=== PATIENT | male | born 1945 | race Caucasian/White ===

== ENCOUNTER 2024-12-30 22:11 | Inpatient (IN) | payer OTHER, SELFPAY ==
[2024-12-30] VITALS (7 sets, daily range): BP systolic 152–166; BP diastolic 80–97; BMI 31.4
--- NOTE | 2024-12-30 19:27 | EDRN ---
Addendum entered by Bri Bland RN 12/30/24 20:13:
Pt states he has had a decreased appetite over past 2.5 weeks and not eating as much w/ weight loss and gets increased pain with and after eating. Pt adds that his stools have been sl abnormal appearing 'pasty.'
Original Note:
Pt states she arrives for 'waves' of abd pain that started 2.5 weeks ago w/ back pain. Pt then got very tired, Next day felt better. Came back and then next day alright. Pt ate food yesterday and pain came back. Pt got bloated after eating. Pt has
not been eating much. pt states pain was getting worse and worse. Pt had a yogurt and soup. Pain noted in Epigstric area now was in bilateral lower abd and not in back now. Pain hurts in abd when takes a deep breath. Spouse states pt looks very
bloated. On exam pain on palpation in epigastric area and LUQ.
--- NOTE | 2024-12-30 19:46 | ED.GENMED ---
History of Present Illness
General
Chief Complaint: Abdominal Pain
Source: patient
Exam Limitations: none
Time Seen by Provider: 12/30/24 19:14
Nursing documentation reviewed up to this point in time: agreed with
History of Present Illness
History of Present Illness:
Patient is a 79-year-old male with history hypertension, hyperlipidemia who presents to the emergency department for evaluation of upper abdominal pain X 2.5 weeks. Patient states symptoms started approximately 2.5 weeks ago with intermittent upper
abdominal/back pain however it seems to be progressively worsening. Patient states last night he had a hamburger, [place] fries and then proceeded to have almost immediate upper abdominal pain that has persisted. He states that pain is worse with
both movement and when he takes a deep breath. He feels that his abdomen is much more distended than usual.
He denies any associated fever, chills, nausea, chest pain, shortness of breath, dysuria, or changes in bowel habits.
Review of Systems
Review of Systems
Allergies reviewed?: Yes
All Other Systems: ROS reviewed and negative except as documented in HPI and ROS
Phy Exam
Physical Exam
Physical Exam:
Vitals: Hypertensive, otherwise vital signs stable. Afebrile
General: Patient is well appearing, no acute distress. Nontoxic appearing
Skin: Warm and dry, no rashes or lesions
Head: Normocephalic, atraumatic
Eyes: Sclera nonicteric. EOMs intact. No nystagmus.
Throat: Protecting airway
Neck: Normal ROM, no cervical spine tenderness, no meningismus
Cardiac: Regular rate and rhythm, no murmurs.
Pulm: Normal respiratory effort, no wheezes, rales, rhonchi heard on exam
.
Abdomen: Mildly distended. Abdomen soft with moderate tenderness in epigastric/right upper quadrant. No rebound tenderness or guarding.
Extremities: No evidence of cyanosis or edema. Palpable DP pulses bilaterally
Neuro: AAOx3. Grossly intact.
Psychiatric: Normal affect.
Course
Orders/Labs/Results
Orders:
Orders
12/30/24 Breakfast
NPO
Allow oral meds: Yes
Allow clear liquids: Sips of Clears
12/30/24 19:32
IV Insert/Care/Rem.- Treatment PRN
12/30/24 19:34
0.9% Sodium Chloride 1000 ml [Nss] 1,000 ml IV BOLUS
Ketorolac [Toradol] 15 mg IV NOW STA
US Abdomen Complete/Upper Urgent
Comment:
Reason For Exam: Upper abdominal pain
12/30/24 19:39
Complete Blood Count/With Diff Urgent
Comprehensive Metabolic Panel Urgent
Lipase Urgent
12/30/24 21:07
HYDROmorphone [Dilaudid] 0.5 mg IV NOW STA
Lactated Ringers [Lr] 1,000 ml IV BOLUS
Piperacillin/Tazo 3.375 Gram [Zosyn] 3.375 gram in 50 ml IV NOW
12/30/24 21:52
Admit/Transfer Patient As Directed
Co-Sign Provider:
Level of Care: Inpatient admission
Assign to:: Medical/Surgical
Physician / Group: [facility]
Diagnosis: Acute Cholecystitis / Cholangitis
Reason for Hospitalization: Acute Cholecystitis / Cholangitis
Expected length of stay greater than two midnights?: Yes
ELOS- Estimated Length of Stay in days: 3
I certify the patient meets the requirements for IP care: Yes
Code Status As Directed
Resuscitation Status: Full Code
PRN Pain Medication Management As Directed
May give lesser potent ordered pain med per pt: Yes
preference::
Protocol:: Medication orders for pain may be administered in a
manner that supports deferring to patient preference
when the pt is:
- Requesting an ordered lesser potent pain medication.
Least to most potent pain medications are defined
as: acetaminophen < NSAID < tramadol < opioids
(morphine, oxycodone, hydromorphone).
- Requesting a lesser dose of the same medication IF
ORDERED.
- Requesting a less intrusive route of administration
if both routes are prescribed by the provider (PO <
IV).
12/30/24 22:00
Amlodipine [Norvasc] 10 mg PO HS
Irbesartan [Avapro] 150 mg PO HS
Tamsulosin [Flomax] 0.4 mg PO HS
12/30/24 22:30
Acetaminophen [Tylenol] 650 mg PO Q4HPRN PRN
HYDROmorphone [Dilaudid] 0.5 mg IV Q4HPRN PRN
Lactated Ringers [Lr] 1,000 ml IV 125 mls/hr
Ondansetron Injectable [Zofran] 4 mg IV Q6HPRN PRN
Zolpidem Tartrate [Ambien] 5 mg PO HS PRN insomnia
12/30/24 22:30
Consult Notification Routine
Specialty to Notify: Gastroenterology
GASTROINTESTINAL CONSULT Routine
Consulting Provider: Sophie Medina
Was physician already notified: No
Reason for consult: Acute Cholecystitis / Cholangitis
SURGICAL CONSULT Routine
Consulting Provider: Angelo Kunz
Was physician already notified: Yes
Reason for consult: Acute Cholecystitis / Cholangitis
Activity As Directed
Activity Level: Ambulate
With Assistance
Bladder Scan As Directed
Follow Bladder Retention/Intermittent Cath Algorithm?: Yes
PRN if no void in __ hours: 6
Frequency: Per Retention Algorithm
If Bladder Scan Result >: 400
then:: Straight cath
I/O [Intake/ Output] As Directed
Frequency: Per unit guidelines
Pneumatic Compression Sleeves As Directed
Type: Knee high
Straight Cath As Directed
Frequency: Per Retention Algorithm
Additional Instructions: straight cath as needed per acute urinary retention algorithm for 24 hrs
Additional Instructions: for bladder scan greater than 400 mL
Vital Signs As Directed
Frequency: Per unit guidelines
Oxygen Therapy [O2 Therapy] [RESP] Routine
Titrate/Wean O2 to maintain O2 sat greater than (%): 94
DX Deep Vein Thrombosis Video Routine
12/31/24 04:00
Piperacillin/Tazo 3.375 Gram [Zosyn] 3.375 gram in 50 ml IV Q6H
12/31/24 06:00
Complete Blood Count/No Diff IN AM
12/31/24 08:00
Pantoprazole [Protonix IV] 40 mg IV DAILY
Abnormal Lab Results
12/30/24
19:39
WBC 17.4 H 10^3/uL
(4.8-10.8)
Abs Immat Gran (auto) 0.1 H 10^3/uL
(0-0.05)
Absolute Neuts (auto) 14.7 H 10^3/uL
(1.4-6.5)
Absolute Monos (auto) 1.0 H 10^3/uL
(0.1-0.6)
Neutrophils % 84.9 H %
(42.2-75.2)
Lymphocytes % 7.0 L %
(20.5-51.1)
Chloride 108 H mmol/L
(98-107)
BUN 22 H mg/dl
(9-20)
Total Bilirubin 1.8 H mg/dl
(0.2-1.3)
AST 295 H U/L
(17-59)
ALT 700 H* U/L
(0-50)
Alkaline Phosphatase 199 H U/L
(38-126)
Lipase > 4000 H* U/L
(23-300)
12/30/24 19:39
12/30/24 19:39
Vital Signs
Initial and Last Documented VS:
Initial Vital Signs
Temp Pulse Resp BP Pulse Ox
98.3 F 66 16 159/96 98
12/30/24 19:03 12/30/24 19:03 12/30/24 19:03 12/30/24 19:03 12/30/24 19:03
Last Documented Vital Signs
Temp Pulse Resp BP Pulse Ox
98 F 59 16 158/80 97
12/30/24 23:00 12/30/24 23:00 12/30/24 23:00 12/30/24 23:00 12/30/24 23:00
MDM/Problems Addressed
Differential Diagnosis Includes:
Not limited to: Biliary colic, acute cholecystitis, pancreatitis, choledocholithiasis, cholangitis, etc.
MDM/Problems Addressed:
71-year-old male presenting with 2.5 weeks of intermittent upper abdominal discomfort, progressively worsening. He also reports associated fatigue and back pain. No associated fever, chills, chest pain, or shortness of breath. No dysuria or
changes in bowel habits. Patient hypertensive with otherwise stable vital signs. He is afebrile. Physical exam as above. Differential broad at this time however considerations include possible intra-abdominal infectious etiologies including a
biliary source, pancreatitis, ulcer/gastritis. ED plan labs, abdominal ultrasound. Will give IV fluids and treat pain. Will closely monitor and reassess.
Update: Labs reviewed CBC significant for leukocytosis of 17.4 with left shift. Chemistry reveals transaminitis, elevated T. bili, alk phos, and significantly elevated lipase greater than 4000. Abdominal ultrasound shows gallstones and sludge as
well as gallbladder wall thickening and a dilated common bile duct. Clinical picture concerning for ascending cholangitis given evidence of obstructive process along with associated infection. I suspect patient also has a gallstone pancreatitis
causing lipase elevation. IV Zosyn and lactated Ringer's initiated in the emergency department. He remains stable and well-appearing. Did discuss with general surgery briefly. Plan will be to admit to hospitalist with GI consult, likely ERCP and
further management. Patient comfortable with this plan. Patient accepted to hospital service in stable condition.
Chronic conditions affecting care:
Hypertension
Acute Exacerbation and/or Progression of Chronic Illness:
Acutely hypertensive likely secondary to pain
*Radiology
Radiology exam reviewed: radiology read reviewed
*Pulse Oximetry
SaO2: 98
Oxygen Mode of Delivery: Room air
Patient hypoxic: no
*EKG
Interpreted by ED Provider?: NA
*Manager Implementation Interpretation
Rate: Manager Implementation- N/A
*Critical Care Note
Total Time (30-74mins, 75-104mins- exclusive of procedures): Not Applicable
Patient Management
Discussion with other providers: Hospitalist and Signal Constructor (Case discussed with general surgery)
Escalation/DeEscalation of care consider admission/obs:
Admit for further management
ED Attending Note
-
Portions of this chart may have been created with voice recognition software.� Occasional wrong word or��sound alike� substitutions may have occurred due to the inherent limitations of voice recognition software.
Discharge Plan
Departure
Patient Disposition: Admit
Date of Disposition: 12/30/24
Time of Disposition: 21:17
Presentation/result/management discussed w/ accepting MD/DO: Hospitalist
Discharge Problem:
Acute cholangitis, Acute gallstone pancreatitis
Interventions
Interventions:
*Risk Screen - Suicide Last Done: 12/30/24 19:03
*General Assessment Last Done: 12/30/24 19:41
*Neglect/Abuse Screening Last Done: 12/30/24 19:41
*ED- Fall Risk Assessment Last Done: 12/30/24 19:41
*ED COVID-19 Vaccine History Last Done: 12/30/24 19:41
*Nursing Disposition Last Done: 12/30/24 22:27
LI-Mdljfh-Mkcmpdvjvl Assessment Last Done: 12/30/24 19:41
Discharge Date and Time
Discharge Date/Time: 12/30/24 22:28
[2024-12-30 19:53] LABS: Hematocrit 44.6 % (39.0-52.0); Hemoglobin 15.2 g/dL (13.0-18.0); Mean Corp Hgb Conc. 34.1 g/dL (33.0-37.0); Mean Corpuscular Volume 87.8 fL (80.0-94.0); Nucleated Red Blood Cells % 0 % (-); Platelet Count 333 10^3/uL (130-400); Red Cell Dist. Width 14.1 % (11.5-14.5)
[2024-12-30] MEDS: NSS 1000 IV (19:54)
[2024-12-30] MEDS: TORADOL 15 MG IV (19:55)
[2024-12-30 20:24] LABS: ALT (SGPT) 700 U/L (0-50); AST (SGOT) 295 U/L (17-59); Albumin 4.3 g/dl (3.5-5.0); Alkaline Phosphatase 199 U/L (38-126); Blood Urea Nitrogen 22 mg/dl (9-20); Calcium 9.5 mg/dl (8.4-10.2); Carbon Dioxide 22 mmol/L (22-30); Chloride 108 mmol/L (98-107); Estimated Creatinine Clearance 63 ml/min; Glucose 90 mg/dl (70-99); Potassium 3.9 mmol/L (3.5-5.1); Sodium 138 mmol/L (135-145); Total Protein 7.4 g/dl (6.3-8.2); eGFR > 60.00
[2024-12-30 20:33] LABS: Lipase > 4000 U/L (23-300)
--- NOTE | 2024-12-30 20:39 | EDRN ---
Called by clerk sandy/ critical lipase of 4000 and TT'd result to Ragini ALBARADO at 10:36.
--- NOTE | 2024-12-30 21:00 | EDRN ---
Ragini ALBARADO in room w/ pt at this time.
[2024-12-30] MEDS: ZOSYN 50 IV (21:13)
[2024-12-30] MEDS: DILAUDID 0.5 MG IV (21:13)
[2024-12-30] MEDS: LR 1000 IV ×2 (21:13→23:35)
--- NOTE | 2024-12-30 21:27 | HPS.HSE ---
Addendum entered and electronically signed by Kurtis Koo DO 12/30/24 22:21:
Patient seen and examined independently. Agree with findings and plan as set forth by PARVIZ Conway.
Patient is a 79y M with [facility] significant for hypertension, dyslipidemia and BPH who presents to ED complaining of abdominal pain for 2-3 weeks. Patient states that pain was intermittent and associated with mild nausea and decreased appetite.
Today his pain become much more severe and did not improve.
Ass:
Acute Calculous Cholecystitis
Cholangitis
Gallstone Pancreatitis
Benign Hypertension
Dyslipidemia
BPH
Plan:
Admit for further evaluation and treatment.
IV abx, IVFs, pain control and supportive care.
GI evaluation for additional recommendations / possible ERCP.
Surgery evaluation for eventual cholecystectomy.
Continue BP medications with holding parameters.
Continue tamsulosin. Bladder scan protocol.
Original Note:
Family Physician
-
Family Physician: NOT KNOW UNKNOWN - PT DOES
Chief Complaint
-
abdominal pain
History of Present Illness
Patient is a 79-year-old male with past medical history significant for hypertension, hyperlipidemia and BPH who presented to [facility] ED for evaluation of abdominal pain. Patient reports having diffuse abdominal pain for approximately 2.5 weeks, pain
was intermittent until today when it got severe and did not improve. He reports decreased appetite over past 2 weeks and stated sometimes when he ate pain got worse. He states pain got severe earlier today and would not improve and stated pain
increased with deep breathing. Denies any fever, chills, cough, shortness of breath, chest pain, nausea, vomiting or change in bowel pattern.
Medical History
Past Medical History
Past Medical History: Reports Other
Additional Past Medical History:
hypertension
hyperlipidemia
BPH
Past Surgical History: Reports Other
Additional Past Surgical History:
bilateral knee replacements
left shoulder replacement
L5 discectomy
appendectomy 1953
Social History
Tobacco: Non-smoker
Alcohol: Occasional (rare)
Drug: None
Personal:
Living: With Family
Employment: Retired
Family History
Family History: Other (Mother: Breast cancer, CHF; Father: [place])
Allergies / Home Medications
Allergies reflects when Allergies were last updated in [facility].
Home Medications with original date entered in [facility]
Allergy/Medication List:
Allergies
Allergy/AdvReac Type Severity Reaction Status Date / Time
No Known Allergies Allergy Verified 12/30/24 19:03
Home Medications
amlodipine 10 mg tablet 10 mg PO HS 12/30/24
hydrochlorothiazide 25 mg tablet 25 mg PO DAILY PRN swelling 12/30/24
irbesartan 150 mg tablet 150 mg PO HS 12/30/24
rosuvastatin 5 mg tablet 5 mg PO MOWEFR 12/30/24
tamsulosin 0.4 mg capsule 0.4 mg PO HS 12/30/24
zolpidem 5 mg tablet (Ambien) 5 mg PO HS PRN insomnia 12/30/24
Review of Systems
-
History Source: Patient
Constitutional: Reports No Symptoms
EENT: Reports No Symptoms
Respiratory: Reports No Symptoms
Cardiac: Reports No Symptoms
Abdomen/GI: Reports Abdominal Pain and Other (decreased appetite and some bloating )
: Reports No Symptoms
Musculoskeletal: Reports No Symptoms
Skin: Reports No Symptoms
Neurological: Reports No Symptoms
Endocrine: Reports No Symptoms
Hematologic/Lymphatic: Reports No Symptoms
Psych: Reports No Symptoms
Physical Exam
Vital Signs
Vital Signs
Temp Pulse Resp BP Pulse Ox
98.3 F 54 16 152/87 98
12/30/24 19:03 12/30/24 20:35 12/30/24 20:35 12/30/24 20:35 12/30/24 20:35
Physical Exam
General: Well Developed, Well Nourished, No Apparent Distress and Morbidly Obese
HEENT: NormoCephalic, Moist mucous membranes, Atraumatic and [place] Conjunctivae
Respiratory: Clear
Cardiac: S1/S2 and Regular Rhythm
Breast: Deferred by me
GI: Soft, Normal Bowel Sounds, Tender and Distended
Rectal: Deferred by Provider
Genito-urinary: Deferred by me
Musculoskeletal: No Clubbing, No Cyanosis and No Edema
Skin: Warm and IV/Catheter Site
Neuro: Awake, Alert, AO x 3 and Nonfocal/grossly intact
Psych: Calm and Intact Judgment/Insight
Laboratory Results
-
12/30/24 19:39
12/30/24 19:39
Laboratory Results
Total Bilirubin 1.8 mg/dl (0.2-1.3) H 12/30/24 19:39
AST 295 U/L (17-59) H 12/30/24 19:39
ALT 700 U/L (0-50) H* 12/30/24 19:39
Alkaline Phosphatase 199 U/L (38-126) H 12/30/24 19:39
Lipase > 4000 U/L (23-300) H* 12/30/24 19:39
Data Reviewed
-
Ultrasound: Report Reviewed by me (Abd: Multiple gallstones and sludge. Gallbladder wall is thickened with minimal pericholecystic edema. Negative sonographic Corley's sign, but patient has received pain medication. No gross evidence of
intrahepatic bile duct dilation. The common bile duct is dilated, measuring up to 9.1 mm. Hepato)
Lab Data: Labs Reviewed by me (WBC 17.4, Neut 84.9, Tot Bili 1.8, AST 295, ALT 700, Alk Phos 199, Lipase >4000)
Impression/Plan
-
IMPRESSION/PLAN:
#Acute Cholecystitis/Cholangitis
#pancreatitis
WBC 17.4, Neut 84.9, Tot Bili 1.8, AST 295, ALT 700, Alk Phos 199, Lipase >4000
Abd US: Multiple gallstones and sludge. Gallbladder wall is thickened with minimal pericholecystic edema. Negative sonographic Corley's sign, but patient has received pain medication.
No gross evidence of intrahepatic bile duct dilation. The common bile duct is dilated, measuring up to 9.1 mm.
Hepatomegaly with diffuse fatty infiltration of the liver. No evidence of a focal hepatic lesion.
Pancreatic tail is unable to be visualized.
- Admit to med/surg
- Consult GI
- Consult Surgery
- LR 125cc/hr
- IV Zosyn
- pain regimen and antiemetics
#hypertension
- continue amlodipine and irbesartan
#hyperlipidemia
- continue rosuvastatin
#BPH
- continue tamsulosin
Code status: full code
DVT prophylaxis: SCDs
--- NOTE | 2024-12-30 21:41 | EDRN ---
Sheng Medel NP w/ hospitalist group in room w/ pt.
--- NOTE | 2024-12-30 22:00 | EDRN ---
Dr. Koo in room w/ pt at this time.
[2024-12-30] MEDS: NORVASC 10 MG PO (23:33)
[2024-12-30] MEDS: AMBIEN 5 MG PO (23:33)
[2024-12-30] MEDS: AVAPRO 150 MG PO (23:33)
[2024-12-30] MEDS: FLOMAX PO (23:33)
[2024-12-31] MEDS: ZOSYN 50 IV ×4 (03:58→22:06)
[2024-12-31] MEDS: DILAUDID 0.5 MG IV ×4 (04:04→23:07)
--- NOTE | 2024-12-31 06:33 | CON.GI ---
Addendum entered and electronically signed by Sophie Medina DO 12/31/24 09:27:
The patient was seen and examined by me independently in collaboration with the nurse practitioner.
Past medical history/social history/medications/allergies/family history reviewed.
Lab data and imaging data reviewed.
Manuel Rodriguez is a 79-year-old male with past medical history of BPH, hyperlipidemia, hypertension admitted with complaints of worsening gastric pain, flatulence and early satiety for 3 weeks. Abdominal ultrasound performed showed minimal
pericholecystic edema and wall thickening, multiple shadowing gallstones within the gallbladder as well as gallbladder sludge. Thickened gallbladder wall up to 5.4 mm. Gallbladder wall appears edematous. Negative sonographic Corley sign. CBD
mildly dilated to 9.1 mm. No evidence of choledocholithiasis. The liver appears enlarged and diffusely increased in echogenicity.
On exam, he overall appears well and pain is well-controlled. No NSAIDs or blood thinners.
WBC 17,400, bili 1.8, AST 295, ALT 700, alk phos 199 and lipase >4000.
A/P: Gallstone pancreatitis with mild CBD dilation on abdominal US.
-Increase IVF
-pain control
-check MRCP to rule out choledocholithiasis, explained to patient that if retained CBD stone will need to proceed with ERCP
-General surgery consulted, deferring cholecystectomy for now pending improvement in pancreatitis and need for ERCP
-agree with abx
-Fatty liver in US, will defer to outpatient for further workup/management. Need to see where baseline LFTs are following acute episode
Original Note:
Consultation
-
Date/Time Consultation Requested: 12/30/24 2330
Date/Time Consultation Performed: 12/31/24 0700
Requesting Provider: Kurtis Koo DO
Performing Provider: PARVIZ Moreno, Ana Medina DO
Reason for Consultation: pancreatitis
Medical History
Chief Complaint / HPI
Chief Complaint: abdominal pain
History of Present Illness:
Pt is a 79yo with hx HTN, hyperlipidemia, BPH, prior ortho surgery with onset of abdominal pain for last 2-3 weeks with decreased appetite. Pain increased in severity prompting ER eval. On admission noted with WBC 17,400, bili 1.8, AST 295, ALT
700, alk phos 199 and lipase >4000. US completed on admission with Multiple gallstones and sludge. Gallbladder wall is thickened with minimal pericholecystic edema. Negative sonographic Corley's sign, but patient has received pain medication.No
gross evidence of intrahepatic bile duct dilation. The common bile duct is dilated, measuring up to 9.1 mm.Hepatomegaly with diffuse fatty infiltration of the liver. No evidence of a focal hepatic lesion.Pancreatic tail is unable to be visualized.
In review with patient he admits to initial onset of gassiness and fatigue then abdominal pain for several week intermittently. Symptoms became severe prompting ER eval. He denies hx pancreatitis or family hx pancreatic CA. He did have some
improvement in pain after admission with pain meds. No GPL1 use. Pt admits to dark urine but denies change in stool color. No weight change, fever, nausea, vomiting, diarrhea, constipation or rectal bleeding. Pt did take some Flomax but denies
any other change in medication. No ETOH use.
IVF
Past Medical History
Past Medical History: HTN, Hypercholesterolemia and Other (BPH)
Past Surgical History: Appendectomy and Orthopedic (b/l TKR, shoulder replacement, L5 discectomy)
Social History
Tobacco: Non-Smoker
Alcohol: None
Drug: None
Personal:
Living: With Family
Employment: Retired
Family History
Family History: Other (no family hx pancreatitis or pancreatic CA)
Allergies / Home Medications
Allergy/AdvReac Type Severity Reaction Status Date / Time
No Known Allergies Allergy Verified 12/30/24 19:03
�Medication �Instructions �Recorded
amlodipine 10 mg tablet 10 mg PO HS 12/30/24
hydrochlorothiazide 25 mg tablet 25 mg PO DAILY PRN swelling 12/30/24
irbesartan 150 mg tablet 150 mg PO HS 12/30/24
rosuvastatin 5 mg tablet 5 mg PO MOWEFR 12/30/24
tamsulosin 0.4 mg capsule 0.4 mg PO HS 12/30/24
zolpidem 5 mg tablet (Ambien) 5 mg PO HS PRN insomnia 12/30/24
Review of Systems
-
History Source: Patient
Constitutional: Reports No Symptoms
EENT: Reports No Symptoms
Respiratory: Reports No Symptoms
Cardiac: Reports No Symptoms
Abdomen/GI: Reports Abdominal Pain and Other (gassiness, bloating )
: Reports Dark Urine
Musculoskeletal: Reports No Symptoms
Skin: Reports No Symptoms
Neurological: Reports Weakness
Endocrine: Reports No Symptoms
Hematologic/Lymphatic: Reports No Symptoms
Vital Signs
Temp Pulse Resp BP Pulse Ox
98 F 59 16 158/80 97
12/30/24 23:00 12/30/24 23:00 12/30/24 23:00 12/30/24 23:00 12/30/24 23:00
Physical Exam
Exam
General: Well Developed, Well Nourished and No Apparent Distress
HEENT: Normocephalic and Other (minimal jaundice )
Respiratory: Clear
Cardiac: Regular Rhythm
GI: Soft, Non Distended and Tender (minimal epigastric tenderness after pain meds)
Musculoskeletal: No Clubbing and No Cyanosis
Skin: Warm and Dry
Neuro: Awake, Alert and AO x 3
Psych: Calm
Results
WBC 17.4 10^3/uL (4.8-10.8) H 12/30/24 19:39
Hgb 15.2 g/dL (13.0-18.0) 12/30/24 19:39
Hct 44.6 % (39.0-52.0) 12/30/24 19:39
MCV 87.8 fL (80.0-94.0) 12/30/24 19:39
Plt Count 333 10^3/uL (130-400) 12/30/24 19:39
Absolute Neuts (auto) 14.7 10^3/uL (1.4-6.5) H 12/30/24 19:39
Sodium 138 mmol/L (135-145) 12/30/24 19:39
Potassium 3.9 mmol/L (3.5-5.1) 12/30/24 19:39
Chloride 108 mmol/L (98-107) H 12/30/24 19:39
Carbon Dioxide 22 mmol/L (22-30) 12/30/24 19:39
BUN 22 mg/dl (9-20) H 12/30/24 19:39
Creatinine 1.1 mg/dL (0.7-1.3) 12/30/24 19:39
Calcium 9.5 mg/dl (8.4-10.2) 12/30/24 19:39
Total Bilirubin 1.8 mg/dl (0.2-1.3) H 12/30/24 19:39
AST 295 U/L (17-59) H 12/30/24 19:39
ALT 700 U/L (0-50) H* 12/30/24 19:39
Alkaline Phosphatase 199 U/L (38-126) H 12/30/24 19:39
Lipase > 4000 U/L (23-300) H* 12/30/24 19:39
Diagnostic Image Results:
US abdomen 12/30/24
Multiple gallstones and sludge. Gallbladder wall is thickened with minimal pericholecystic edema. Negative sonographic Corley's sign, but patient has received pain medication.
No gross evidence of intrahepatic bile duct dilation. The common bile duct is dilated, measuring up to 9.1 mm.
Hepatomegaly with diffuse fatty infiltration of the liver. No evidence of a focal hepatic lesion.
Pancreatic tail is unable to be visualized.
Prior GI Procedures:
EGD: none
Assessment / Plan
-
Pt is a 79yo with hx HTN, hyperlipidemia, BPH, prior ortho surgery with onset of abdominal pain for last 2-3 weeks with decreased appetite. Pain increased in severity prompting ER eval. On admission noted with WBC 17,400, bili 1.8, AST 295, ALT
700, alk phos 199 and lipase >4000. US completed on admission with Multiple gallstones and sludge. Gallbladder wall is thickened with minimal pericholecystic edema. Negative sonographic Corley's sign, but patient has received pain medication.No
gross evidence of intrahepatic bile duct dilation. The common bile duct is dilated, measuring up to 9.1 mm.Hepatomegaly with diffuse fatty infiltration of the liver. No evidence of a focal hepatic lesion.Pancreatic tail is unable to be visualized.
Pt did take some Flomax but denies any other change in medication. No ETOH use. No prior pancreatitis or family hx pancreatic CA.
-new onset abdominal pain with elevated LFT's and lipase concern for gallstone pancreatitis
-multiple gallstones and sludge with GBWT and pericholecystic edema with CBD dilation
-leukocytosis
other med problems:
- HTN
- hyperlipidemia
- BPH
prior ortho surgery b/l TKR, shoulder replacement, L5 discectomy
PLAN:
etiology of symptoms related to gallstone pancreatitis/choledocholithiasis , cholecystitis vs other
agree with abx
will add MRI with MRCP
trend labs
NPO
IVF
-new onset abdominal pain with elevated LFT's and lipase concern for gallstone pancreatitis
-multiple gallstones and sludge with GBWT and pericholecystic edema with CBD dilation
-leukocytosis
other med problems:
- HTN
- hyperlipidemia
- BPH
prior ortho surgery b/l TKR, shoulder replacement, L5 discectomy
PLAN:
etiology of symptoms related to gallstone pancreatitis with possible choledocholithiasis , cholecystitis vs other
agree with abx
will add MRI with MRCP -if + stool then ERCP
trend labs
NPO
IVF s/p bolus in ER will increased to 250ml/hr
pain control per hospitalist
reviewed case with surgical team-- for surgical eval
-
-
Thank you for consultation and allowing me to participate in the patient's care. Please call the [facility] GI physician during the after hours with any questions or concerns.
[2024-12-31 07:04] LABS: Hematocrit 38.6 % (39.0-52.0); Hemoglobin 13.4 g/dL (13.0-18.0); Mean Corp Hgb Conc. 34.7 g/dL (33.0-37.0); Mean Corpuscular Volume 87.3 fL (80.0-94.0); Platelet Count 297 10^3/uL (130-400); Red Cell Dist. Width 14.0 % (11.5-14.5)
[2024-12-31 07:20] VITALS: BP 140/81
[2024-12-31 07:21] LABS: ALT (SGPT) 472 U/L (0-50); AST (SGOT) 143 U/L (17-59); Albumin 3.4 g/dl (3.5-5.0); Alkaline Phosphatase 163 U/L (38-126); Blood Urea Nitrogen 16 mg/dl (9-20); Calcium 8.8 mg/dl (8.4-10.2); Carbon Dioxide 21 mmol/L (22-30); Chloride 109 mmol/L (98-107); Estimated Creatinine Clearance 87 ml/min; Glucose 99 mg/dl (70-99); Potassium 3.7 mmol/L (3.5-5.1); Sodium 137 mmol/L (135-145); Total Protein 6.0 g/dl (6.3-8.2); eGFR > 60.00
--- NOTE | 2024-12-31 07:51 | CON.GS ---
Addendum entered and electronically signed by Angelo Kunz MD 12/31/24 12:39:
Patient seen and examined.
Mr Rodriguez is a 79 yo male with a PMH of obesity, HTN, HLD, BPH, s/p open appendectomy, bl TKR, L shoulder replacement, and L5 discectomy who presented through the ED after about 2.5 weeks of intermittent generalized abdominal pain which he
attributed to gas pains. Yesterday, he had a hamburger with fries and corn on the cob and the pain returned and became more severe across his upper abdomen. This pain persisted causing him to present through the ED for evaluation. Associated back
pain. He denies nausea or emesis. He denies acholic stools or bowel changes. He notes poor PO intake over the past few weeks and darker urine. He denies fevers. Pain still present, mostly to the epigastrium with recent narcotic administration.
Gen: NAD
Abd: soft, tender in epigastrium, ND, non-peritoneal, prior incision in RLQ well healed
Labs and imaging were reviewed.
Patient is a 79 yo M p/w gallstone pancreatitis
The natural history and pathophysiology of biliary stone disease was reviewed. Anatomy was reviewed utilizing pictorial images. Workup thus far including labs and imaging were reviewed. Role of cholecystectomy in preventing future episodes of
cholecystitis, choledocholithiasis, gallstone pancreatitis were reviewed. GI consult noted. Recommend continue medical management for pancreatitis. MRI pending. Timing of cholecystectomy TBD. All questions answered.
-- No plans for cholecystectomy today as continued pain
-- GI consult noted, MRI pending
-- Currently on Zosyn
-- OK for clears from surgical perspective
Original Note:
Consultation
-
Date/Time Consultation Performed: 12/31/24 7466
Medical History
-
Chief Complaint: abdominal pain
History of Present Illness:
Mr Rodriguez is a 79 yo male with appendectomy, bph and htn who presented through the ED after about 2.5 weeks of intermittent generalized abdominal pain which he attributed to gas pains. Yesterday, he had a hamburger with fries and corn on the cob
and the pain returned and became more severe across his upper abdomen. This pain persisted causing him to present through the ED for evaluation. He denies n/v. He denies acholic stools or bowel changes. He notes poor PO intake over the past few
weeks and darker urine. He denies fevers. Pain still present, mostly to the epigastrium with recent narcotic administration. On exam, he is tender to the epigastrium and RUQ.
Past Medical History
Past Medical History: HTN, Hypercholesterolemia and Other (BPH, obesity)
Past Surgical History: Appendectomy (1953) and Orthopedic (BL TRK, L TSA, L5 Discectomy)
Social History
Tobacco: Non-Smoker
Alcohol: None
Personal:
Living: With Family
Family History
Family History: Reviewed & Not Pertinent
Allergies / Home Medications
Allergy/AdvReac Type Severity Reaction Status Date / Time
No Known Allergies Allergy Verified 12/30/24 19:03
�Medication �Instructions �Recorded �Confirmed �Type
amlodipine 10 mg tablet 10 mg PO HS Blood Pressure 12/30/24 12/30/24 History
hydrochlorothiazide 25 mg tablet 25 mg PO DAILY PRN swelling 12/30/24 12/30/24 History
irbesartan 150 mg tablet 150 mg PO HS Blood Pressure 12/30/24 12/30/24 History
rosuvastatin 5 mg tablet 5 mg PO MOWEFR High Cholesterol 12/30/24 12/30/24 History
tamsulosin 0.4 mg capsule 0.4 mg PO HS Urinary Issue/BPH 12/30/24 12/30/24 History
zolpidem 5 mg tablet (Ambien) 5 mg PO HS PRN insomnia 12/30/24 12/30/24 History
Review of Systems
-
History Source: Patient
All other systems: Negative unless noted
A 10 point review of systems was completed, and was negative except as per HPI.
Physical Exam
Vital Signs
Temp Pulse Resp BP Pulse Ox
98 F 59 16 158/80 97
12/30/24 23:00 12/30/24 23:00 12/30/24 23:00 12/30/24 23:00 12/30/24 23:00
12/30/24 12/31/24 01/01/25
06:59 06:59 06:59
Actual Weight 107.774 kg
Body Mass Index (BMI) 31.4
Lab Results
12/31/24 06:12
12/31/24 06:12
WBC 17.6 10^3/uL (4.8-10.8) H 12/31/24 06:12
Hgb 13.4 g/dL (13.0-18.0) 12/31/24 06:12
Hct 38.6 % (39.0-52.0) L 12/31/24 06:12
Plt Count 297 10^3/uL (130-400) 12/31/24 06:12
Abs Immat Gran (auto) 0.1 10^3/uL (0-0.05) H 12/30/24 19:39
Neutrophils % 84.9 % (42.2-75.2) H 12/30/24 19:39
Physical Exam
General: Well Developed and Well Nourished
HEENT: Normocephalic and Moist Mucous Membranes
Respiratory: Non Labored Respirations
GI: Soft, Non Distended, Tender (Upper abd, epigastric more severe than RUQ) and Obese
Skin: Warm and Dry
Neuro: Awake and Alert
Psych: Calm
Data Reviewed
-
Ultrasound: Image Personally Visualized and interpreted, Report Reviewed by me, Discussed with Physician, Discussed with Nurse and Discussed with Family
Labs: Labs Reviewed by me, Discussed with Physician, Discussed with Patient and Discussed with Family
Assessment / Plan
-
79 yo male with 2 1/2 weeks of intermittent abdominal pain/discomfort which became localized to the epigastrium and more severe after a high fat meal and persisted causing him to present. US imaging with minimal pericholecystic edema and wall
thickening. Negative obrien's. Bilirubin elevated to 1.8 on arrival now 2.2, transaminitis present, Lipase >4k, WBC rising at 17.6. AFVSS. Suspect gallstone mediated pancreatitis with possible choledocholithiasis.
Plan:
Gastroenterology following with MRCP planned
OK for clears from surgical standpoint, currently NPO for testing
Empiric abx
Discussed role of cholecystectomy in preventing future episodes, will plan once pancreatitis improved/resolved later this admission. Timing TBD
[2024-12-31] MEDS: PROTONIX IV 40 MG IV (08:20)
[2024-12-31] MEDS: NSS (PRESERVATIVE FREE) 10 ML IV (08:20)
[2024-12-31] MEDS: LR 1000 IV ×3 (10:07→20:58)
--- NOTE | 2024-12-31 10:13 | CM ---
Reviewed the chart notes and spoke with the patient at the bedside. Patient currently NPO for testing. MRCP ordered. The patient resides with his spouse in a split level home with one step to enter. The patient reports no DME/SNF, but had VN
after knee surgery. Agency name unknown. The patient confirmed his pharmacy of choice is the [facility]. CM continues to be available to patient/family and is monitoring medical plan for needs at discharge.
Plan: Discharge plans will depend on the patient's progress.
--- NOTE | 2024-12-31 10:48 | W.PN.HOSP.TC ---
Today's Communication/Plan
-
Assessment / Plan
Assessment / Plan
Acute Calculous Cholecystitis
- IVF
- Antibiotics
- Surgery consult
Cholangitis
- LFT's
- IV antibitoics
Gallstone Pancreatitis
- MRCP +- ERCP
- IVF at rate of 250cc/hr with LR
- Analgesics
Fatty liver
- Outpt GI follo wup
- Need baseline LFt's
- LFT's currently exaggerated by cholangits/cholecysitisis/pancreatitis
BPH
- Continue flomax
HTN
- Continue antihypertensives
HLD
- Continue lipitor
Anticipated Discharge: > 48 hours
Subjective/Interval History
-
Date of Service: December 31, 2024
seen and examined. no new complaitns. no acute overnight events
intermittent abd painabd pain ongoing for 2 weeks intermittents
coupple of days ago had a hamburger and fried, developed bloating and abd pain, epigastric
no nausea vomitning, normal bowel movement color, normal urine color
Objective Data
-
Labs:
Laboratory Results
12/31/24
06:12
WBC 17.6 H
Hgb 13.4
Hct 38.6 L
Plt Count 297
Sodium 137
Potassium 3.7
Chloride 109 H
Carbon Dioxide 21 L
BUN 16
Creatinine 0.9
Glucose 99
Calcium 8.8
Total Bilirubin 2.2 H
AST 143 H
ALT 472 H
Alkaline Phosphatase 163 H
Vital Signs:
Vital Signs
Temp Pulse Resp BP Pulse Ox
98.8 F 64 16 140/81 97
12/31/24 07:20 12/31/24 07:20 12/31/24 07:20 12/31/24 07:20 12/31/24 10:32
I&O
12/30/24 12/31/24 01/01/25
06:59 06:59 06:59
Intake Total 400 / 400
Output Total 400 / 400
Balance 0 / 0
Physical Exam
-
General: Well Developed and Well Nourished
HEENT: Normocephalic and Atraumatic
Respiratory: Clear to Auscultation
Cardiac: Regular Rhythm and S1/S2
Breast: Deferred by me
GI: Soft, Normal Bowel Sounds, Tender and Distended
Genito-urinary: No Costovertebral Tender
Musculoskeletal: No Clubbing, No Cyanosis and No Edema
Neuro: Awake, Alert and AO x 3
Psych: Calm
[2024-12-31 15:25] VITALS: BP 142/79
[2024-12-31] MEDS: AMBIEN 5 MG PO (22:06)
[2024-12-31] MEDS: FLOMAX 0.4 MG PO (22:07)
[2024-12-31] MEDS: NORVASC 10 MG PO (22:07)
[2024-12-31] MEDS: AVAPRO 150 MG PO (22:07)
[2024-12-31 23:11] VITALS: BP 136/65
[2025-01-01] MEDS: LR 1000 IV ×2 (01:23→05:07)
[2025-01-01] MEDS: ZOSYN 50 IV ×4 (04:23→21:54)
[2025-01-01] MEDS: DILAUDID 0.5 MG IV ×4 (04:35→23:10)
[2025-01-01] MEDS: LR IV (05:22)
[2025-01-01 05:56] LABS: Hematocrit 36.7 % (39.0-52.0); Hemoglobin 12.5 g/dL (13.0-18.0); Mean Corp Hgb Conc. 34.1 g/dL (33.0-37.0); Mean Corpuscular Volume 87.6 fL (80.0-94.0); Platelet Count 263 10^3/uL (130-400); Red Cell Dist. Width 14.1 % (11.5-14.5)
[2025-01-01 06:28] LABS: ALT (SGPT) 286 U/L (0-50); AST (SGOT) 55 U/L (17-59); Albumin 3.2 g/dl (3.5-5.0); Alkaline Phosphatase 130 U/L (38-126); Blood Urea Nitrogen 11 mg/dl (9-20); Calcium 8.7 mg/dl (8.4-10.2); Carbon Dioxide 24 mmol/L (22-30); Chloride 107 mmol/L (98-107); Estimated Creatinine Clearance 98 ml/min; Glucose 92 mg/dl (70-99); Potassium 3.4 mmol/L (3.5-5.1); Sodium 138 mmol/L (135-145); Total Protein 5.8 g/dl (6.3-8.2); eGFR > 60.00
[2025-01-01 07:08] VITALS: BP 146/79
[2025-01-01] MEDS: NSS (PRESERVATIVE FREE) 10 ML IV (08:18)
[2025-01-01] MEDS: PROTONIX IV 40 MG IV (08:18)
--- NOTE | 2025-01-01 08:22 | W.PN.GI.CBS2 ---
Today's Communication / Plan
-
Appears well on exam, but rising WBC. Check blood cultures. Okay for clears. Bowel regimen. Timing of cholecystectomy TBD.
Assessment / Plan
-
Manuel Rodriguez is a 79-year-old male with past medical history of BPH, hyperlipidemia, hypertension admitted with complaints of worsening gastric pain, flatulence and early satiety for 3 weeks. Abdominal ultrasound performed showed minimal
pericholecystic edema and wall thickening, multiple shadowing gallstones within the gallbladder as well as gallbladder sludge. Thickened gallbladder wall up to 5.4 mm. Gallbladder wall appears edematous. Negative sonographic Corley sign. CBD
mildly dilated to 9.1 mm. No evidence of choledocholithiasis. The liver appears enlarged and diffusely increased in echogenicity.
On exam, he overall appears well and pain is well-controlled. No NSAIDs or blood thinners.
Admitting labs: WBC 17,400, bili 1.8, AST 295, ALT 700, alk phos 199 and lipase >4000.
MRI/MRCP with findings c/w acute cholecystitis and acute pancreatitis w/o evidence of necrosis, abscess or developing pseudocyst. No evidence of choledocholithiasis.
A/P: Gallstone pancreatitis
-Increase IVF
-pain control
-No evidence of choledocholithiasis on MRI
-Transaminases improving, Tbili the same
-advance to clears
-bowel regimen
-Timing of cholecystectomy per surgery
-continue antibiotics
-monitor fever curve
-check blood cultures
-Fatty liver in US, will defer to outpatient for further workup/management. Need to see where baseline LFTs are following acute episode
Subjective
Subjective
Date of Service: January 01, 2025
Leukocytosis slightly worse today at 23K, normotensive remains tachycardic and afebrile. She states the pain has improved compared to yesterday overall looks more awake and alert compared to her exam yesterday afternoon.
Patient reports feeling well, mild pain that was relieved with medication. He is eager to have his gallbladder out. Mild worsening of white count this morning to 21K. Denies nausea. No BM. Tmax 99.
Objective
Data Reviewed
Laboratory Data:
Laboratory Results
01/01/25 05:35
01/01/25 05:35
Laboratory Results
Total Bilirubin 2.5 mg/dl (0.2-1.3) H 01/01/25 05:35
AST 55 U/L (17-59) 01/01/25 05:35
ALT 286 U/L (0-50) H 01/01/25 05:35
Alkaline Phosphatase 130 U/L (38-126) H 01/01/25 05:35
Lipase > 4000 U/L (23-300) H* 12/30/24 19:39
Vital Signs and I&O:
Vital Signs
Temp Pulse Resp BP Pulse Ox
99.0 F 64 17 146/79 95
01/01/25 07:08 01/01/25 07:08 01/01/25 07:08 01/01/25 07:08 01/01/25 07:08
I&O
12/31/24 01/01/25 01/02/25
06:59 06:59 06:59
Intake Total 400 / 400 6680 / 6680
Output Total 400 / 400 1600 / 1600
Balance 0 / 0 5080 / 5080
Physical Exam
Physical Exam
GENERAL: In no acute distress, appears comfortable
ABDOMEN: +BS; soft, nondistended. minimal TTP in epigastrium and RUQ
[2025-01-01 09:05] LABS: Lipase 425 U/L (23-300)
--- NOTE | 2025-01-01 09:17 | W.PN.GS2 ---
Today's Communication / Plan
-
-- Clears
-- Abx: Zosyn
-- DVT: Lovenox
-- Timing of cholecystectomy TBD
Assessment / Plan
-
Patient is a 79 yo M p/w gallstone pancreatitis with possible acute cholecystitis
MRI with no evidence of choledocholithiasis, noted peripancreatic fluid consistent with pancreatitis
AVSS
Labs notable for increased WBC, bilirubin, decrease in LFTs and lipase
Role of cholecystectomy was again reviewed. Given his persistent pain and elevated WBC and bilirubin plan to monitor for an additional 24 hours with bowel rest and antibiotics. Will continue to assess patient and determine right time for
cholecystectomy, likely within the next 24 to 48 hours.
-- Clears
-- Abx: Zosyn
-- DVT: Lovenox
-- Timing of cholecystectomy TBD
Subjective Data
-
Date of Service: January 01, 2025
Improve the continued abdominal discomfort. No nausea or vomiting. No fevers.
Objective Data
-
Intake and Output
12/31/24 01/01/25 01/02/25
06:59 06:59 06:59
Intake Total 400 / 400 6680 / 6680
Output Total 400 / 400 1600 / 1600
Balance 0 / 0 5080 / 5080
Intake:
Oral fluids 400 / 400 480 / 480
IV fluids (Total) 3000 / 3000
IV piggybacks 3200 / 3200
Output:
Urine, Voided 400 / 400 1600 / 1600
Vital Signs
Temp Pulse Resp BP Pulse Ox
99.0 F 64 17 146/79 95
01/01/25 07:08 01/01/25 07:08 01/01/25 07:08 01/01/25 07:08 01/01/25 07:08
Lab Results
01/01/25 05:35
01/01/25 05:35
Calcium 8.7 mg/dl (8.4-10.2) 01/01/25 05:35
Total Bilirubin 2.5 mg/dl (0.2-1.3) H 01/01/25 05:35
Direct Bilirubin 0.4 mg/dl (0.0-0.4) 12/31/24 06:12
AST 55 U/L (17-59) 01/01/25 05:35
ALT 286 U/L (0-50) H 01/01/25 05:35
Alkaline Phosphatase 130 U/L (38-126) H 01/01/25 05:35
Total Protein 5.8 g/dl (6.3-8.2) L 01/01/25 05:35
Albumin 3.2 g/dl (3.5-5.0) L 01/01/25 05:35
Physical Exam
-
Gen: NAD
Abd: soft, tender to palpation in RUQ, ND, non-peritoneal, prior incision well healed
Patient has a araujo catheter: No
Patient has a central line: No
--- NOTE | 2025-01-01 14:45 | W.PN.HOSP.TC ---
Today's Communication/Plan
-
Assessment / Plan
Assessment / Plan
Acute Calculous Cholecystitis
- IVF
- Antibiotics
- Surgery consult
Cholangitis
- LFT's
- IV antibitoics
Gallstone Pancreatitis
- MRCP without choledocholithiasis, noted to have cholecysititis
- Surgery planning for lap kannan tomorrow
- IVF at rate of 250cc/hr with LR
- Analgesics
Hypokalemia
- Replete prn
Fatty liver
- Outpt GI follo wup
- Need baseline LFt's
- LFT's currently exaggerated by cholangits/cholecysitisis/pancreatitis
BPH
- Continue flomax
HTN
- Continue antihypertensives
HLD
- Continue lipitor
Anticipated Discharge: 24 - 48 hours
Subjective/Interval History
-
Date of Service: January 01, 2025
seen and examined
he was hoping to get his gallbladder out todya
no acute ovenright events
no new complaints.
Objective Data
-
Labs:
Laboratory Results
01/01/25
05:35
WBC 21.4 H
Hgb 12.5 L
Hct 36.7 L
Plt Count 263
Sodium 138
Potassium 3.4 L
Chloride 107
Carbon Dioxide 24
BUN 11
Creatinine 0.8
Glucose 92
Calcium 8.7
Total Bilirubin 2.5 H
AST 55
ALT 286 H
Alkaline Phosphatase 130 H
Vital Signs:
Vital Signs
Temp Pulse Resp BP Pulse Ox
99.0 F 64 17 146/79 95
01/01/25 07:08 01/01/25 07:08 01/01/25 07:08 07/06/25 07:08 01/01/25 10:11
I&O
12/31/24 01/01/25 01/02/25
06:59 06:59 06:59
Intake Total 400 / 400 6680 / 6680 830 / 830
Output Total 400 / 400 1600 / 1600
Balance 0 / 0 5080 / 5080 830 / 830
[2025-01-01] MEDS: KCL 40 MEQ PO (14:54)
[2025-01-01 14:55] VITALS: BP 133/67
[2025-01-01] MEDS: LOVENOX 40 MG SC (17:20)
[2025-01-01] MEDS: FLOMAX 0.4 MG PO (21:53)
[2025-01-01] MEDS: NORVASC 10 MG PO (21:53)
[2025-01-01] MEDS: AVAPRO 150 MG PO (21:53)
[2025-01-01] MEDS: AMBIEN 5 MG PO (23:10)
[2025-01-01 23:19] VITALS: BP 132/68
[2025-01-02] VITALS (13 sets, daily range): BP systolic 0–158; BP diastolic 59–79; BMI 31.4
[2025-01-02] MEDS: ZOSYN 50 IV ×4 (03:25→21:46)
[2025-01-02 06:55] LABS: Hematocrit 37.2 % (39.0-52.0); Hemoglobin 12.6 g/dL (13.0-18.0); INR 1.23; Mean Corp Hgb Conc. 33.9 g/dL (33.0-37.0); Mean Corpuscular Volume 87.9 fL (80.0-94.0); PT 15.8 Sec (11.4-14.6); Platelet Count 266 10^3/uL (130-400); Red Cell Dist. Width 14.2 % (11.5-14.5)
[2025-01-02 06:56] LABS: APTT 43.8 Sec (23.4-35.0)
[2025-01-02 07:15] LABS: Blood Urea Nitrogen 12 mg/dl (9-20); Calcium 9.0 mg/dl (8.4-10.2); Carbon Dioxide 26 mmol/L (22-30); Chloride 106 mmol/L (98-107); Estimated Creatinine Clearance 87 ml/min; Glucose 98 mg/dl (70-99); Potassium 4.0 mmol/L (3.5-5.1); Sodium 138 mmol/L (135-145); eGFR > 60.00
--- NOTE | 2025-01-02 08:31 | W.PN.GI.CBS2 ---
Today's Communication / Plan
-
NPO for cholecystectomy today. Will sign off, needs OP f/u with GI for workup/management of fatty liver.
Assessment / Plan
-
Manuel Rodriguez is a 79-year-old male with past medical history of BPH, hyperlipidemia, hypertension admitted with complaints of worsening gastric pain, flatulence and early satiety for 3 weeks. Abdominal ultrasound performed showed minimal
pericholecystic edema and wall thickening, multiple shadowing gallstones within the gallbladder as well as gallbladder sludge. Thickened gallbladder wall up to 5.4 mm. Gallbladder wall appears edematous. Negative sonographic Corley sign. CBD
mildly dilated to 9.1 mm. No evidence of choledocholithiasis. The liver appears enlarged and diffusely increased in echogenicity.
On exam, he overall appears well and pain is well-controlled. No NSAIDs or blood thinners.
Admitting labs: WBC 17,400, bili 1.8, AST 295, ALT 700, alk phos 199 and lipase >4000.
MRI/MRCP with findings c/w acute cholecystitis and acute pancreatitis w/o evidence of necrosis, abscess or developing pseudocyst. No evidence of choledocholithiasis.
A/P: Gallstone pancreatitis
-pain control
-No evidence of choledocholithiasis on MRI
-AM labs pending, improved transaminases yesterday with mild increase to Tbili 2.5
-NPO for cholecystectomy today
-continue antibiotics
-f/u blood cultures
-Fatty liver in US, will defer to outpatient for further workup/management. Need to see where baseline LFTs are following acute episode
GI will sign off. Recommend outpatient GI follow-up to discuss management/workup for fatty liver.
Subjective
Subjective
Date of Service: January 02, 2025
Leukcytosis improving. Reports overall feeling well, eager for cholecystectomy, scheduled for 1 pm today.
Objective
Data Reviewed
Laboratory Data:
Laboratory Results
01/02/25 06:18
01/02/25 06:18
Laboratory Results
PT 15.8 Sec (11.4-14.6) H 01/02/25 06:18
INR 1.23 01/02/25 06:18
APTT 43.8 Sec (23.4-35.0) H 01/02/25 06:18
Total Bilirubin 2.5 mg/dl (0.2-1.3) H 01/01/25 05:35
AST 55 U/L (17-59) 01/01/25 05:35
ALT 286 U/L (0-50) H 01/01/25 05:35
Alkaline Phosphatase 130 U/L (38-126) H 01/01/25 05:35
Lipase 425 U/L (23-300) H 01/01/25 05:35
Vital Signs and I&O:
Vital Signs
Temp Pulse Resp BP Pulse Ox
98.7 F 63 17 144/79 97
01/02/25 07:17 01/02/25 07:17 01/02/25 07:17 01/02/25 07:17 01/02/25 07:17
I&O
01/01/25 01/02/25 01/03/25
06:59 06:59 06:59
Intake Total 6680 / 6680 1310 / 1310
Output Total 1600 / 1600
Balance 5080 / 5080 1310 / 1310
Physical Exam
Physical Exam
GENERAL: In no acute distress, appears comfortable
ABDOMEN: +BS; soft, nondistended. minimal TTP in epigastrium and RUQ
[2025-01-02 08:33] LABS: ALT (SGPT) 214 U/L (0-50); AST (SGOT) 33 U/L (17-59); Albumin 3.5 g/dl (3.5-5.0); Alkaline Phosphatase 141 U/L (38-126); Total Protein 6.2 g/dl (6.3-8.2)
[2025-01-02] MEDS: PROTONIX IV 40 MG IV (08:38)
[2025-01-02] MEDS: NSS (PRESERVATIVE FREE) 10 ML IV (08:38)
[2025-01-02] MEDS: LR 1000 IV ×2 (08:40→23:35)
--- NOTE | 2025-01-02 09:44 | W.PN.GS2 ---
Today's Communication / Plan
-
Plan reviewed with attending.
Assessment / Plan
-
Patient is a 79 yo M p/w gallstone pancreatitis with possible acute cholecystitis
MRI with no evidence of choledocholithiasis, noted peripancreatic fluid consistent with pancreatitis
AVSS
Labs notable for continued increased WBC with mild downtrend, indirect bilirubin, ALP, decrease in LFTs
Role of cholecystectomy was again reviewed. Given his persistent pain and elevated WBC plan to continue antibiotics and plan for OR today.
-- NPO pending OR today
-- Abx: Zosyn
-- DVT: Lovenox
-- Timing of cholecystectomy TBD
Subjective Data
-
Date of Service: January 02, 2025
79yoM with gallstone pancreatitis and concern of acute cholecystitis
Pt reports continued abdominal pain and lack of appetite. Denies nausea, vomiting, chills, fever. Reports managed pain on current regimen. Pt last received dose of diluadid 11pm last night and continues to feel better than on presentation without
recent medication. Able to tolerate PO liquids and urinating appropriately. No BM since 12/30/24
Objective Data
-
Intake and Output
01/01/25 01/02/25 01/03/25
06:59 06:59 06:59
Intake Total 6680 / 6680 1310 / 1310
Output Total 1600 / 1600
Balance 5080 / 5080 1310 / 1310
Intake:
Oral fluids 480 / 480 1260 / 1260
IV fluids (Total) 3000 / 3000
IV piggybacks 3200 / 3200 50 / 50
Output:
Urine, Voided 1600 / 1600
Other:
Number of approximated MODERATE 3
amounts of urine
Vital Signs
Temp Pulse Resp BP Pulse Ox
98.7 F 63 17 144/79 97
01/02/25 07:17 01/02/25 07:17 01/02/25 07:17 01/02/25 07:17 01/02/25 07:17
Lab Results
01/02/25 06:18
01/02/25 06:18
Calcium 9.0 mg/dl (8.4-10.2) 01/02/25 06:18
Total Bilirubin 2.3 mg/dl (0.2-1.3) H 01/02/25 06:18
Direct Bilirubin 0.3 mg/dl (0.0-0.4) 01/02/25 06:18
AST 33 U/L (17-59) 01/02/25 06:18
ALT 214 U/L (0-50) H 01/02/25 06:18
Alkaline Phosphatase 141 U/L (38-126) H 01/02/25 06:18
Total Protein 6.2 g/dl (6.3-8.2) L 01/02/25 06:18
Albumin 3.5 g/dl (3.5-5.0) 01/02/25 06:18
Physical Exam
-
General: Pt awake and oriented. No acute distress. Sitting comforably in bed.
Cardiac: Regular rate.
Pulm: Breathing comfortably on room air.
HEENT: No scleral icterus.
Abdomen: RUQ and periumbilical pain to deep palpation. Soft, nondistended. Non peritoneal.
Patient has a araujo catheter: No
Patient has a central line: No
--- NOTE | 2025-01-02 11:58 | W.SUR.PREOP ---
Pre-Operative Surgical Note
-
I have examined this patient prior to the performance of the scheduled procedure.
The patient's condition is unchanged from the time of the current History and
Physical and the patient is able to undergo the scheduled procedure.
--- NOTE | 2025-01-02 14:21 | W.IMMPOSTOP ---
Surgical Immed Post Op Note
-
Primary Surgeon: Edi Tirado MD
Assisting Surgeon: None
Pre-op Diagnosis: Gallstone pancreatitis
Post-op Diagnosis: gallstone pancreatitis, acute on chronic cholecystitis
Procedure Performed:
Laparoscopic subtotal fenestrating cholecystectomy with cholangiogram
Excision of the falciform ligament
Anesthesia Type: General
Specimen / Cultures:
1. Gallbladder fluid for culture.
2. Gallbladder and contents
3. Falciform ligament
Estimated Blood Loss: 11 cc
Complications: None
Operative Findings: At the start of the case, the falciform ligament was not tethered to the anterior abdominal wall but instead directly connected to the umbilical region preventing superior retraction of the liver, this was excised near the sulcus
and near the umbilicus and sent as specimen #3. Dense adhesions from the colon and duodenum overlying the gallbladder were identified and were taken down with a mix of sharp and blunt dissection as well as judicious use of electrocautery. The
cystic triangle was prohibitively inflamed so a top-down subtotal fenestrated laparoscopic cholecystectomy was performed. There was purulent bile in the gallbladder which was cultured. There was multiple black oxalate stones which were
individually removed until none remained. The ostium of the cystic duct was identified and free flow of bile was noted. Cholangiogram was performed which demonstrated normal biliary anatomy and no distal filling defects. Unfortunately given the
anatomy, ligation of the cystic duct was not possible so a 19 [place] round Henry drain was introduced through the right lateralmost port and secured to the skin with a 2-0 nylon suture with the tip of the drain in the infundibulum of the
gallbladder. The back wall of the gallbladder was fulgurated.
POST OP PLAN:
Imaging: None
Labs: Routine AM
Diet: Okay for clears, n.p.o. at midnight.
Analgesia: Tylenol 650mg q6 Susan, Dilaudid 0.5mg q2h PRN
Neuro/vascular checks: q4h
AC/AP: Hold Therapeutic AC, Ok for DVT PPx
Activity: Ad Demi
Wound/Incisions/Drains: Routine, AYESHA to bulb suction. Patient will need this for at least a week
Abx: Would continue antibiotics x 4 days.
Dispo: RNF, GI consult placed for ERCP/stenting given cystic duct bile leak.
--- NOTE | 2025-01-02 15:03 | W.PN.HOSP.TC ---
Today's Communication/Plan
-
Reconsult GI
Assessment / Plan
Assessment / Plan
Gen-sleepy but arousable, NAD
HEENT-NC, AT, anicteric, clear oral mm
Neck-supple
CV-reg, no M, +S1/S2
Lungs-clear B/L
Abd-soft, NT, ND
Ext-no edema
Musculoskeletal-no cyanosis, clubbing
Skin-warm and dry
Neuro-grossly non-focal
Psych-calm, cooperative
Acute on chronic calculous Cholecystitis -underwent cholecystectomy today, noting purulence from the gallbladder. Cholangiogram performed which demonstrated normal biliary anatomy and no distal filling defects. Ligation of the cystic duct unable
to be performed due to anatomy as per surgical note. Drain left in the infundibulum of the gallbladder. GI consulted for ERCP and stenting given cystic bile duct leak.
Continue empiric antibiotics. Blood cultures negative so far. Afebrile, leukocytosis noted.
Acute gallstone Pancreatitis -as above.
Hypokalemia -resolved.
Fatty liver
- Outpt GI follow-up
- Need baseline LFt's
- LFT's currently exaggerated by cholangits/cholecysitisis/pancreatitis
BPH
- Continue flomax
Essential HTN
- Continue antihypertensives
Hyperlipidemia -hold rosuvastatin given elevated transaminases.
Obesity due to excess calories
Full code
Anticipated Discharge: > 48 hours
Subjective/Interval History
-
Date of Service: January 02, 2025
Patient seen and examined in the recovery room. No complaints.
Objective Data
-
Labs:
Laboratory Results
01/02/25
06:18
WBC 19.1 H
Hgb 12.6 L
Hct 37.2 L
Plt Count 266
PT 15.8 H
INR 1.23
APTT 43.8 H
Sodium 138
Potassium 4.0
Chloride 106
Carbon Dioxide 26
BUN 12
Creatinine 0.9
Glucose 98
Calcium 9.0
Total Bilirubin 2.3 H
AST 33
ALT 214 H
Alkaline Phosphatase 141 H
Vital Signs:
Vital Signs
Temp Pulse Resp BP Pulse Ox
99 F 70 16 121/64 97
01/02/25 14:22 01/02/25 14:45 01/02/25 14:45 01/02/25 14:45 01/02/25 14:45
I&O
01/01/25 01/02/25 01/03/25
06:59 06:59 06:59
Intake Total 6680 / 6680 1310 / 1310
Output Total 1600 / 1600 0 / 0
Balance 5080 / 5080 1310 / 1310 0 / 0
Review of Systems
-
History Source: Patient
All other systems: Reviewed and negative
--- NOTE | 2025-01-02 15:52 | PTCARENOTE ---
Pt returned to 2S in bed. Abdominal lap sites C/D/I, glued and UNIVERS[employer] ADMINISTRATOR. AYESHA drain site clean and intact, sanguinous output noted in the drain. Nasal cannula maintained. Pt and educated on CLD and to ring for assistance with ambulation, verbalized
understanding. Bed locked and in the lowest position, safety maintained. Oriented to room and call lópez, spouse at bedside.
[2025-01-02] MEDS: DILAUDID 0.5 MG IV ×2 (18:00→20:11)
[2025-01-02] MEDS: LOVENOX 40 MG SC (18:00)
[2025-01-02] MEDS: TYLENOL 650 MG PO (20:11)
[2025-01-02] MEDS: FLOMAX 0.4 MG PO (21:46)
[2025-01-02] MEDS: AVAPRO 150 MG PO (21:46)
[2025-01-02] MEDS: NORVASC 10 MG PO (21:46)
[2025-01-02] MEDS: AMBIEN 5 MG PO (22:38)
[2025-01-03] VITALS (10 sets, daily range): BP systolic 111–159; BP diastolic 65–91
[2025-01-03] MEDS: DILAUDID 0.5 MG IV ×3 (00:30→15:42)
[2025-01-03] MEDS: TYLENOL PO (01:36)
[2025-01-03] MEDS: ZOSYN 50 IV ×4 (04:25→22:09)
[2025-01-03 07:24] LABS: Hematocrit 36.3 % (39.0-52.0); Hemoglobin 12.5 g/dL (13.0-18.0); Mean Corp Hgb Conc. 34.4 g/dL (33.0-37.0); Mean Corpuscular Volume 87.5 fL (80.0-94.0); Platelet Count 308 10^3/uL (130-400); Red Cell Dist. Width 13.9 % (11.5-14.5)
--- NOTE | 2025-01-03 07:54 | W.PN.GS2 ---
Addendum entered and electronically signed by Edi Tirado MD 01/03/25 10:52:
I saw and examined the patient independently.
The resident's documentation was reviewed and I agree with the note, assessment and plan except where noted below.
Comment: This is a 79-year-old male with a history of gallstone pancreatitis POD #1 status post laparoscopic subtotal fenestrating cholecystectomy with cholangiogram for acute on severe chronic cholecystitis with expected cystic duct bile leak.
Doing well, expected postoperative course.
GI consult for ERCP today. Okay to resume regular diet postprocedure.
Continue antibiotics x 4 days.
DVT prophylaxis.
AYESHA drain teaching, anticipate discharge home as early as tomorrow with drain with plans for outpatient drain removal.
Plan reviewed, patient and agreeable to plan of care above.
Original Note:
Today's Communication / Plan
-
Plan reviewed with attending.
Assessment / Plan
-
Patient is a 79 yo M with gallstone pancreatitis with acute on chronic cholecystitis s/p POD 1 cholecystectomy. Cystic duct unable to be closed during surgery and AYESHA drain placed.
AVSS
Labs notable for continued downtrend WBC.
-- GI to take for ERCP for cystic duct stent
-- AYESHA drain to suction for 1 week postop
-- Continue 4 days abx: zosyn
-- DVT: Lovenox
-- Diet: NPO for procedure. As tolerated after procedure.
Subjective Data
-
Date of Service: January 03, 2025
79yoM presented with abdominal pain with gallstone pancreatitis and acute on chronic cholecystitis s/p POD1 cholecystectomy.
In surgery, purulent gallbladder removed. Unable to close cystic duct, AYESHA drain placed.
Pt reports mild discomfort surrounding drain but controlled pain on current regimen. Denies fever, chills, vomiting. Passing gas, no BM. Urinating at baseline. Reports consistent fluid draining in AYESHA. Pt reports increased appetite and desire for
food.
Objective Data
-
Intake and Output
01/02/25 01/03/25 01/04/25
06:59 06:59 06:59
Intake Total 1310 / 1310 100 / 100 1780 / 1780
Output Total 40 / 40 840 / 840
Balance 1310 / 1310 60 / 60 940 / 940
Intake:
Oral fluids 1260 / 1260 480 / 480
IV fluids (Total) 100 / 100 1200 / 1200
Normosol 100 / 100
IV piggybacks 50 / 50 100 / 100
Output:
Drain Output (Total) 270 / 270
Right Abdomen [place] 270 / 270
Urine, Voided 570 / 570
Other:
Number of approximated MODERATE 3 2
amounts of urine
Vital Signs
Temp Pulse Resp BP Pulse Ox
97.9 F 58 16 111/65 91
01/03/25 03:15 01/03/25 03:15 01/03/25 03:15 01/03/25 03:15 01/02/25 23:15
Lab Results
01/03/25 07:04
Calcium 9.0 mg/dl (8.4-10.2) 01/02/25 06:18
Total Bilirubin 2.3 mg/dl (0.2-1.3) H 01/02/25 06:18
Direct Bilirubin 0.3 mg/dl (0.0-0.4) 01/02/25 06:18
AST 33 U/L (17-59) 01/02/25 06:18
ALT 214 U/L (0-50) H 01/02/25 06:18
Alkaline Phosphatase 141 U/L (38-126) H 01/02/25 06:18
Total Protein 6.2 g/dl (6.3-8.2) L 01/02/25 06:18
Albumin 3.5 g/dl (3.5-5.0) 01/02/25 06:18
Physical Exam
-
General: Pt awake and oriented. No acute distress. Sitting comfortably in bed.
Cardiac: Regular rate.
Pulm: Breathing comfortably on room air.
HEENT: No scleral icterus. PERRL.
Abdomen: RUQ pain to deep palpation. Soft, non peritoneal, continues to be mildly distended. AYESHA drain with bilious fluid. Incisions clean, dry, intact.
Patient has a araujo catheter: No
Patient has a central line: No
[2025-01-03] MEDS: NSS (PRESERVATIVE FREE) 10 ML IV (08:16)
[2025-01-03] MEDS: TYLENOL 650 MG PO ×3 (08:16→20:57)
[2025-01-03] MEDS: PROTONIX IV 40 MG IV (08:17)
[2025-01-03 08:41] LABS: ALT (SGPT) 173 U/L (0-50); AST (SGOT) 35 U/L (17-59); Albumin 3.5 g/dl (3.5-5.0); Alkaline Phosphatase 141 U/L (38-126); Blood Urea Nitrogen 14 mg/dl (9-20); Calcium 8.7 mg/dl (8.4-10.2); Carbon Dioxide 23 mmol/L (22-30); Chloride 105 mmol/L (98-107); Estimated Creatinine Clearance 98 ml/min; Glucose 134 mg/dl (70-99); Potassium 3.8 mmol/L (3.5-5.1); Sodium 137 mmol/L (135-145); Total Protein 6.3 g/dl (6.3-8.2); eGFR > 60.00
[2025-01-03] MEDS: LR 1000 IV ×2 (09:33→20:56)
--- NOTE | 2025-01-03 10:43 | CM ---
Reviewed the chart notes and spoke with the patient at the bedside. Reviewed area VNs. Patient selected [facility]. Referral sent via [facility]. Patient's spouse will provide transportation home when stable. CM continues to be available to
patient/family and is monitoring medical plan for needs at discharge.
Plan: Discharge to home with VN services. Referral sent via [facility].
--- NOTE | 2025-01-03 11:00 | W.PN.HOSP.TC ---
Today's Communication/Plan
-
ERCP today
Assessment / Plan
Assessment / Plan
Gen-sleepy but arousable, NAD
HEENT-NC, AT, anicteric, clear oral mm
Neck-supple
CV-reg, no M, +S1/S2
Lungs-clear B/L
Abd-soft, NT, ND
Ext-no edema
Musculoskeletal-no cyanosis, clubbing
Skin-warm and dry
Neuro-grossly non-focal
Psych-calm, cooperative
Acute on chronic calculous Cholecystitis -underwent cholecystectomy 01/02, noting purulence from the gallbladder. Cholangiogram performed which demonstrated normal biliary anatomy and no distal filling defects. Ligation of the cystic duct unable to
be performed due to anatomy as per surgical note. Drain left in the infundibulum of the gallbladder.
Awaiting ERCP today.
Continue empiric antibiotics. Blood cultures negative so far. Afebrile, leukocytosis noted.
LFTs trending down.
Acute gallstone Pancreatitis -as above.
Hypokalemia -resolved.
Fatty liver
- Outpt GI follow-up
- Need baseline LFt's
- LFT's currently exaggerated by cholangits/cholecysitisis/pancreatitis
BPH
- Continue flomax
Essential HTN
- Continue antihypertensives
Hyperlipidemia -hold rosuvastatin given elevated transaminases.
Obesity due to excess calories
Full code
Anticipated Discharge: Within 24 hours
Subjective/Interval History
-
Date of Service: January 03, 2025
Patient seen and examined. Does have some abdominal discomfort, especially around drain.
Objective Data
-
Labs:
Laboratory Results
01/03/25
07:04
WBC 18.1 H
Hgb 12.5 L
Hct 36.3 L
Plt Count 308
Sodium 137
Potassium 3.8
Chloride 105
Carbon Dioxide 23
BUN 14
Creatinine 0.8
Glucose 134 H
Calcium 8.7
Total Bilirubin 1.3 D
AST 35
ALT 173 H
Alkaline Phosphatase 141 H
Vital Signs:
Vital Signs
Temp Pulse Resp BP Pulse Ox
97.9 F 57 16 137/75 98
01/03/25 07:25 01/03/25 07:25 01/03/25 07:25 01/03/25 07:25 01/03/25 07:25
I&O
01/02/25 01/03/25 01/04/25
06:59 06:59 06:59
Intake Total 1310 / 1310 100 / 100 1830 / 1830
Output Total 40 / 40 840 / 840
Balance 1310 / 1310 60 / 60 990 / 990
Review of Systems
-
History Source: Patient
All other systems: Reviewed and negative
--- NOTE | 2025-01-03 15:28 | VNURNOTE ---
Home Health Liaison met with patient and spouse at bedside to discuss [facility] nurse/therapy, visits, schedule and homebound status. Patient is agreeable and understands that visits at home will be 2-3 x per week to assess and teach medical and drain
management.
Patient is aware that [facility] will contact them for start of care in 1-2 days after discharge from .
[facility] referral accepted in [facility].
[2025-01-03] MEDS: LOVENOX 40 MG SC (17:51)
[2025-01-03] MEDS: LR IV (20:48)
--- NOTE | 2025-01-03 22:00 | PTCARENOTE ---
Patient received from PACU and was assisted to bed by staff. Patient sleepy but easily arousable. IVF per order. Patient denied pain but then c/o gas pain. Activity encouraged. +flatus. +belching. Dilaudid 0.5mg per order. AYESHA draining yellow
green then more greenish drainage. VSS at bedside
[2025-01-03] MEDS: FLUSH (NSS) 3 FLUSH IV (22:08)
[2025-01-03] MEDS: AVAPRO 150 MG PO (22:09)
[2025-01-03] MEDS: FLOMAX 0.4 MG PO (22:09)
[2025-01-03] MEDS: NORVASC 10 MG PO (22:09)
[2025-01-03] MEDS: AMBIEN 5 MG PO (23:09)
[2025-01-04] MEDS: TYLENOL PO (02:19)
[2025-01-04 03:15] VITALS: BP 129/68
[2025-01-04] MEDS: ZOSYN 50 IV ×4 (04:11→22:13)
[2025-01-04] MEDS: FLUSH (NSS) 2 FLUSH IV (04:12)
--- NOTE | 2025-01-04 07:03 | W.PN.GI.CBS2 ---
Today's Communication / Plan
-
Advance diet. Outpatient f/u with Dr. Bangura in 8 weeks. GI will sign off, please call with questions
Assessment / Plan
-
Manuel Rodriguez is a 79-year-old male with past medical history of BPH, hyperlipidemia, hypertension admitted with complaints of worsening gastric pain, flatulence and early satiety for 3 weeks. Abdominal ultrasound performed showed minimal
pericholecystic edema and wall thickening, multiple shadowing gallstones within the gallbladder as well as gallbladder sludge. Thickened gallbladder wall up to 5.4 mm. Gallbladder wall appears edematous. Negative sonographic Corley sign. CBD
mildly dilated to 9.1 mm. No evidence of choledocholithiasis. The liver appears enlarged and diffusely increased in echogenicity.
On exam, he overall appears well and pain is well-controlled. No NSAIDs or blood thinners.
Admitting labs: WBC 17,400, bili 1.8, AST 295, ALT 700, alk phos 199 and lipase >4000.
MRI/MRCP with findings c/w acute cholecystitis and acute pancreatitis w/o evidence of necrosis, abscess or developing pseudocyst. No evidence of choledocholithiasis.
A/P: Gallstone pancreatitis, now s/p cholecystectomy c/b bile leak. S/p ERCP with biliary and pancreatic sphincterotomies, plastic stents placed in the CBD and ventral PD
-advance to fat diet
-AM labs pending
-abx
-f/u with Dr. Bangura in 8 weeks, our office will call patient to schedule
-pain control
-continue antibiotics
-blood cx NGTD: anaerobic cultures pending
-Fatty liver in US, will defer to outpatient for further workup/management. Need to see where baseline LFTs are following acute episode
GI will sign off.
Subjective
Subjective
Date of Service: January 04, 2025
s/p ERCP yesterday, with pancreatic and biliary sphincterotomy performed, 1 plastic stent placed into the CBD and 1 plastic stent placed into the ventral PD. Overall, patient doing well this morning, wants to eat breakfast.
Objective
Data Reviewed
Laboratory Data:
Laboratory Results
PT 15.8 Sec (11.4-14.6) H 01/02/25 06:18
INR 1.23 01/02/25 06:18
APTT 43.8 Sec (23.4-35.0) H 01/02/25 06:18
Total Bilirubin 1.3 mg/dl (0.2-1.3) D 01/03/25 07:04
AST 35 U/L (17-59) 01/03/25 07:04
ALT 173 U/L (0-50) H 01/03/25 07:04
Alkaline Phosphatase 141 U/L (38-126) H 01/03/25 07:04
Lipase 425 U/L (23-300) H 01/01/25 05:35
Vital Signs and I&O:
Vital Signs
Temp Pulse Resp BP Pulse Ox
97.8 F 58 18 129/68 95
01/04/25 03:15 01/04/25 03:15 01/04/25 03:15 01/04/25 03:15 01/04/25 03:15
I&O
01/03/25 01/04/25 01/05/25
06:59 06:59 06:59
Intake Total 100 / 100 2059 / 2059
Output Total 40 / 40 2195 / 2195 410 / 410
Balance 60 / 60 -135 / -135 -410 / -410
Physical Exam
Physical Exam
GI: Soft, Non Distended (minimal abdominal distension) and Tender (minimal TTP in RUQ and epigastrium)
[2025-01-04 07:40] VITALS: BP 136/77
[2025-01-04 07:43] LABS: Hematocrit 35.5 % (39.0-52.0); Hemoglobin 12.1 g/dL (13.0-18.0); Mean Corp Hgb Conc. 34.1 g/dL (33.0-37.0); Mean Corpuscular Volume 87.7 fL (80.0-94.0); Nucleated Red Blood Cells % 0 % (-); Platelet Count 353 10^3/uL (130-400); Red Cell Dist. Width 14.0 % (11.5-14.5)
[2025-01-04 08:09] LABS: ALT (SGPT) 126 U/L (0-50); AST (SGOT) 25 U/L (17-59); Albumin 3.2 g/dl (3.5-5.0); Alkaline Phosphatase 111 U/L (38-126); Blood Urea Nitrogen 18 mg/dl (9-20); Calcium 8.7 mg/dl (8.4-10.2); Carbon Dioxide 26 mmol/L (22-30); Chloride 108 mmol/L (98-107); Estimated Creatinine Clearance 98 ml/min; Glucose 115 mg/dl (70-99); Potassium 4.1 mmol/L (3.5-5.1); Sodium 139 mmol/L (135-145); Total Protein 5.9 g/dl (6.3-8.2); eGFR > 60.00
[2025-01-04] MEDS: PROTONIX IV 40 MG IV (08:33)
[2025-01-04] MEDS: NSS (PRESERVATIVE FREE) 10 ML IV (08:33)
[2025-01-04] MEDS: TYLENOL 650 MG PO ×3 (08:33→19:54)
--- NOTE | 2025-01-04 09:54 | CM ---
Reviewed the chart notes and spoke with the patient and spouse at the bedside. IMM reviewed. Patient's spouse to provide transportation home. CM continues to be available to patient/family and is monitoring medical plan for needs at discharge.
Plan: Discharge to home with [facility] services.
--- NOTE | 2025-01-04 10:56 | W.PN.GS2 ---
Addendum entered and electronically signed by Behzad Armando MD 01/04/25 12:33:
I saw and examined the patient.
The resident's note was reviewed and I agree with the note.
Comment: AF, no tachycardia, pain improving, marcela reg diet. WBC remains elevated at 18K, LFTs WNL. slightly up from yesterday. Mild ttp to RUQ on exam, drain 250cc out 12AM-7:30AM, light murillo bilious. Would cont reg diet, iv abx, trend wbc, monitor
drain output for improvement.
Original Note:
Today's Communication / Plan
-
Plan reviewed with attending.
Assessment / Plan
-
Patient is a 79 yo M with gallstone pancreatitis with acute on chronic cholecystitis s/p POD 2 laparoscopic subtotal fenestrating cholecystectomy and 1 day s/p ERCP with cystic duct and ventral pancreatic duct stent placement.
Labs notable for mild increase in WBC. Continued downtrend in LFTS. Drain output has not decreased since stent placement and continues to be bilious. Plan to stay overnight to monitor for drop off in AYESHA drain and WBC.
-- AYESHA drain to suction for 1 week postop. Continue to monitor output.
-- Continued elevated white count. Continue 4 days abx: 2 more days post op.
-- DVT: Lovenox
-- Diet: As tolerated.
Subjective Data
-
Date of Service: January 04, 2025
79yoM presented with abdominal pain with gallstone pancreatitis and acute on chronic cholecystitis s/p POD2 laparoscopic subtotal fenestrating cholecystectomy and 1 day post ERCP with cystic duct and ventral pancreatic duct stent placement.
Pt reports continued RUQ pain and discomfort surrounding his AYESHA drain. Pt reports increased appetite. He reports he ate breakfast with no postprandial discomfort, nausea, or vomiting. No BM but reports flatulence. AYESHA drain continues putting out
bilious fluid.
Objective Data
-
Intake and Output
01/03/25 01/04/25 01/05/25
06:59 06:59 06:59
Intake Total 100 / 100 2060 / 2060 900 / 900
Output Total 2195 / 2195 450 / 450
Balance 60 / 60 -135 / -135 450 / 450
Intake:
Oral fluids 510 / 510
IV fluids (Total) 100 / 100 1300 / 1300 900 / 900
LR 100 / 100
Normosol 100 / 100
IV piggybacks 250 / 250
Output:
Drain Output (Total) 675 / 675 100 / 100
Right Abdomen [place] 675 / 675 100 / 100
Urine, Voided 1520 / 1520 350 / 350
Other:
Number of approximated MODERATE 2 1
amounts of urine
Vital Signs
Temp Pulse Resp BP Pulse Ox
97.8 F 54 16 136/77 97
01/04/25 07:40 01/04/25 07:40 01/04/25 07:40 01/04/25 07:40 01/04/25 09:42
Lab Results
01/04/25 07:12
01/04/25 07:12
Calcium 8.7 mg/dl (8.4-10.2) 01/04/25 07:12
Total Bilirubin 1.0 mg/dl (0.2-1.3) 01/04/25 07:12
Direct Bilirubin 0.3 mg/dl (0.0-0.4) 01/02/25 06:18
AST 25 U/L (17-59) 01/04/25 07:12
ALT 126 U/L (0-50) H 01/04/25 07:12
Alkaline Phosphatase 111 U/L (38-126) 01/04/25 07:12
Total Protein 5.9 g/dl (6.3-8.2) L 01/04/25 07:12
Albumin 3.2 g/dl (3.5-5.0) L 01/04/25 07:12
Physical Exam
-
General: Pt awake and oriented. No acute distress. Sitting comfortably in bed.
Cardiac: Regular rate.
Pulm: Breathing comfortably on room air.
HEENT: No scleral icterus. PERRL.
Abdomen: RUQ pain to palpation. Soft, non peritoneal, continues to be mildly distended. AYESHA drain with bilious fluid. Incisions clean, dry, intact.
Patient has a araujo catheter: No
Patient has a central line: No
[2025-01-04 11:00] VITALS: BP 130/74
--- NOTE | 2025-01-04 13:55 | W.PN.HOSP.TC ---
Today's Communication/Plan
-
Trend labs
Monitor drain output
Add IV Toradol
Ambulate
Assessment / Plan
Assessment / Plan
Gen-sleepy but arousable, NAD
HEENT-NC, AT, anicteric, clear oral mm
Neck-supple
CV-reg, no M, +S1/S2
Lungs-clear B/L
Abd-soft, tender right upper quadrant, drain in place
Ext-no edema
Musculoskeletal-no cyanosis, clubbing
Skin-warm and dry
Neuro-grossly non-focal
Psych-calm, cooperative
Acute on chronic calculous Cholecystitis -underwent cholecystectomy 01/02, noting purulence from the gallbladder. Cholangiogram performed which demonstrated normal biliary anatomy and no distal filling defects. Ligation of the cystic duct unable to
be performed due to anatomy as per surgical note. Drain left in the infundibulum of the gallbladder.
Overnight drain output 300 cc. General surgery following.
ERCP performed 01/03, plastic stent placed in the common bile duct and plastic stent placed in the ventral pancreatic duct. Follow-up in the GI office in 8 weeks.
Continue empiric antibiotics. Blood cultures negative so far. Afebrile, leukocytosis noted.
LFTs trending down.
Low residue diet started.
Still requiring IV Dilaudid for pain. Add IV Toradol as needed. No bowel movement so far in the hospital.
Leukocytosis persists. Afebrile.
Acute gallstone Pancreatitis -as above.
Hypokalemia -resolved.
Fatty liver
- Outpt GI follow-up
- Need baseline LFt's
- LFT's currently exaggerated by cholangits/cholecysitisis/pancreatitis
BPH
- Continue flomax
Essential HTN
- Continue antihypertensives
Hyperlipidemia -hold rosuvastatin given elevated transaminases.
Obesity due to excess calories -weight loss encouraged.
Full code
updated at the bedside.
Anticipated Discharge: 24 - 48 hours
Subjective/Interval History
-
Date of Service: January 04, 2025
Patient seen and examined. Complaining of Right upper quadrant abdominal pain.
Objective Data
-
Labs:
Laboratory Results
01/04/25
07:12
WBC 18.5 H
Hgb 12.1 L
Hct 35.5 L
Plt Count 353
Sodium 139
Potassium 4.1
Chloride 108 H
Carbon Dioxide 26
BUN 18
Creatinine 0.8
Glucose 115 H
Calcium 8.7
Total Bilirubin 1.0
AST 25
ALT 126 H
Alkaline Phosphatase 111
Vital Signs:
Vital Signs
Temp Pulse Resp BP Pulse Ox
97.8 F 53 16 130/74 95
01/04/25 11:00 01/04/25 11:00 01/04/25 11:00 01/04/25 11:00 01/04/25 11:00
I&O
01/03/25 01/04/25 01/05/25
06:59 06:59 06:59
Intake Total 100 / 100 2059 / 2059 900 / 900
Output Total 40 / 40 2195 / 2195 650 / 650
Balance 60 / 60 -135 / -135 250 / 250
Review of Systems
-
History Source: Patient
All other systems: Reviewed and negative
[2025-01-04 15:30] VITALS: BP 131/78
[2025-01-04] MEDS: LOVENOX 40 MG SC (17:18)
[2025-01-04 19:30] VITALS: BP 127/68
[2025-01-04] MEDS: FLOMAX 0.4 MG PO (22:12)
[2025-01-04] MEDS: AVAPRO 150 MG PO (22:13)
[2025-01-04] MEDS: NORVASC 10 MG PO (22:13)
[2025-01-04] MEDS: TORADOL 15 MG IV (22:14)
[2025-01-04] MEDS: FLUSH (NSS) 1 FLUSH IV (22:16)
[2025-01-04] MEDS: AMBIEN 5 MG PO (22:20)
[2025-01-04 23:07] VITALS: BP 142/78
[2025-01-05] MEDS: TYLENOL PO (02:19)
[2025-01-05] MEDS: FLUSH (NSS) 1 FLUSH IV (03:22)
[2025-01-05] MEDS: ZOSYN 50 IV ×2 (03:22→11:28)
[2025-01-05 06:54] LABS: Hematocrit 37.0 % (39.0-52.0); Hemoglobin 12.2 g/dL (13.0-18.0); Mean Corp Hgb Conc. 33.0 g/dL (33.0-37.0); Mean Corpuscular Volume 88.9 fL (80.0-94.0); Nucleated Red Blood Cells % 0 % (-); Platelet Count 366 10^3/uL (130-400); Red Cell Dist. Width 14.3 % (11.5-14.5)
[2025-01-05 07:11] LABS: ALT (SGPT) 113 U/L (0-50); AST (SGOT) 29 U/L (17-59); Albumin 3.4 g/dl (3.5-5.0); Alkaline Phosphatase 123 U/L (38-126); Blood Urea Nitrogen 21 mg/dl (9-20); Calcium 8.6 mg/dl (8.4-10.2); Carbon Dioxide 27 mmol/L (22-30); Chloride 107 mmol/L (98-107); Estimated Creatinine Clearance 78 ml/min; Glucose 78 mg/dl (70-99); Potassium 3.9 mmol/L (3.5-5.1); Sodium 140 mmol/L (135-145); Total Protein 6.0 g/dl (6.3-8.2); eGFR > 60.00
[2025-01-05 07:30] VITALS: BP 151/80
[2025-01-05] MEDS: TORADOL 15 MG IV (07:53)
[2025-01-05] MEDS: TYLENOL 650 MG PO (07:54)
[2025-01-05] MEDS: PROTONIX 40 MG PO (07:54)
[2025-01-05] MEDS: MIRALAX 17 GRAMS PO (07:55)
[2025-01-05] MEDS: NSS (PRESERVATIVE FREE) IV (07:55)
--- NOTE | 2025-01-05 08:00 | W.PN.GS2 ---
Addendum entered and electronically signed by Clarence Mabry MD 01/05/25 11:20:
I was physically present with resident Dr. George during the gayle and critical portions of this service and I personally examined the patient.
Appetite improving. Tolerating diet. Passing flatus, no BM
No nausea or vomiting.
Mild/moderate lingering right-sided abdominal pain
AFVSS
NAD AAO x 3
ABD: Soft, mild tenderness palpation right upper quadrant. Lap surgical sites with glue dressings.
AYESHA with bilious fluid
A/P: POD #3 status post lap fenestrated cholecystectomy/PPD #2 status post ERCP with biliary/pancreatic duct stent placements
Appears to have adequate control of cystic duct leak
4 days postop antibiotic coverage currently on Zosyn -could discharge on Augmentin to finish course
Low-fat diet as tolerated
Okay for discharge from surgical standpoint if pain controlled, ambulating well, tolerates p.o. challenge.
AYESHA to remain in place for foreseeable future.
Outpatient follow-up with Dr. Tirado
Original Note:
Today's Communication / Plan
-
Plan reviewed with attending
Assessment / Plan
-
Patient is a 79 yo M with gallstone pancreatitis with acute on chronic cholecystitis s/p POD 3 laparoscopic subtotal fenestrating cholecystectomy and 2 day s/p ERCP with cystic duct and ventral pancreatic duct stent placement.
Labs notable for decrease in WBC and LFTS. Drain output has decreased since yesterday but continues to be bilious. Pt was discouraged yesterday from the lack of improvement of his WBC and drain output. He is less motivated for discharge since he
continues to have abdominal pain. After our discussion about his quantitative improvement today, he was encouraged to take his PRNs if needed to manage pain better.
-- AYESHA drain to suction for 1 week postop. Drop in output overnight. Continue to monitor.
-- Continue 4 days abx: 1 more day abx. Drop in WBC from yesterday. Continue to trend
-- Pain management: scheduled tylenol Q6. PRN toradol 15mg Q6 PRN dilaudid 0.5mg
-- Start miralax
-- DVT: Lovenox
-- Diet: Low fat diet.
Subjective Data
-
Date of Service: January 05, 2025
This morning Mr. Rodriguez is reporting continued abdominal discomfort. He did not receive any pain medication since 10pm but reports controlled pain with tylenol and toradol. Reports no BM but continues to pass flatus. Ambulating well.
Objective Data
-
Intake and Output
01/04/25 01/05/25 01/06/25
06:59 06:59 06:59
Intake Total 0 / 0 2140 / 2140
Output Total 2195 / 2195 990 / 990
Balance -135 / -135 1150 / 1150
Intake:
Oral fluids 510 / 510 1080 / 1080
IV fluids (Total) 1300 / 1300 900 / 900
LR 100 / 100
IV piggybacks 250 / 250 160 / 160
Output:
Drain Output (Total) 675 / 675 640 / 640
Right Abdomen [place] 675 / 675 640 / 640
Urine, Voided 1520 / 1520 350 / 350
Other:
Number of approximated MODERATE 1
amounts of urine
Vital Signs
Temp Pulse Resp BP Pulse Ox
98.1 F 51 16 142/78 95
01/04/25 23:07 01/04/25 23:07 01/04/25 23:07 01/04/25 23:07 01/04/25 23:07
Lab Results
01/05/25 05:39
01/05/25 05:39
Calcium 8.6 mg/dl (8.4-10.2) 01/05/25 05:39
Total Bilirubin 0.9 mg/dl (0.2-1.3) 01/05/25 05:39
Direct Bilirubin 0.3 mg/dl (0.0-0.4) 01/02/25 06:18
AST 29 U/L (17-59) 01/05/25 05:39
ALT 113 U/L (0-50) H 01/05/25 05:39
Alkaline Phosphatase 123 U/L (38-126) 01/05/25 05:39
Total Protein 6.0 g/dl (6.3-8.2) L 01/05/25 05:39
Albumin 3.4 g/dl (3.5-5.0) L 01/05/25 05:39
Physical Exam
-
General: Pt awake and oriented. No acute distress. Sitting comfortably in bed.
Cardiac: Regular rate.
Pulm: Breathing comfortably on room air.
HEENT: No scleral icterus. PERRL.
Abdomen: Continued RUQ pain to palpation but reduced tenderness compared to yesterday. Soft, non peritoneal, continues to be mildly distended, less so than yesterday. AYESHA drain with minimal bilious fluid. Incisions clean, dry, intact.
Patient has a araujo catheter: No
Patient has a central line: No
--- NOTE | 2025-01-05 10:47 | CM ---
Reviewed the chart notes and spoke with the patient at the bedside. Patient anxious for discharge to home. Patient's spouse will provide transportation home. CM continues to be available to patient/family and is monitoring medical plan for needs
at discharge.
Plan: Discharge to home with [facility] services.
--- NOTE | 2025-01-05 12:03 | W.PN.HOSP.TC ---
Today's Communication/Plan
-
Discharge
Assessment / Plan
Assessment / Plan
Gen-sleepy but arousable, NAD
HEENT-NC, AT, anicteric, clear oral mm
Neck-supple
CV-reg, no M, +S1/S2
Lungs-clear B/L
Abd-soft, tender right upper quadrant, drain in place
Ext-no edema
Musculoskeletal-no cyanosis, clubbing
Skin-warm and dry
Neuro-grossly non-focal
Psych-calm, cooperative
Acute on chronic calculous Cholecystitis -underwent cholecystectomy 01/02, noting purulence from the gallbladder. Cholangiogram performed which demonstrated normal biliary anatomy and no distal filling defects. Ligation of the cystic duct unable to
be performed due to anatomy as per surgical note. Drain left in the infundibulum of the gallbladder.
Overnight drain output 300 cc. General surgery following.
ERCP performed 01/03, plastic stent placed in the common bile duct and plastic stent placed in the ventral pancreatic duct. Follow-up in the GI office in 8 weeks.
Continue empiric antibiotics, last day 01/06 per surgical service. Blood cultures negative so far.
LFTs trending down.
Low residue diet started.
Pain improved with NSAIDs.
Leukocytosis improving, afebrile.
Acute gallstone Pancreatitis -as above.
Hypokalemia -resolved.
Fatty liver
- Outpt GI follow-up
- Need baseline LFt's
- LFT's currently exaggerated by cholangits/cholecysitisis/pancreatitis
BPH
- Continue flomax
Essential HTN
- Continue antihypertensives
Hyperlipidemia -hold rosuvastatin given elevated transaminases.
Obesity due to excess calories -weight loss encouraged.
Full code
Dispo -stable for discharge home today with drain in place, VN, discussed with surgical service.
Follow-up with PCP general surgery.
32 minutes spent in discharge process.
Anticipated Discharge: Today
Subjective/Interval History
-
Date of Service: January 05, 2025
Patient seen and examined. Overall feeling better with less pain. Happy to go home.
Objective Data
-
Labs:
Laboratory Results
01/05/25
05:39
WBC 14.7 H
Hgb 12.2 L
Hct 37.0 L
Plt Count 366
Sodium 140
Potassium 3.9
Chloride 107
Carbon Dioxide 27
BUN 21 H
Creatinine 1.0
Glucose 78
Calcium 8.6
Total Bilirubin 0.9
AST 29
ALT 113 H
Alkaline Phosphatase 123
Vital Signs:
Vital Signs
Temp Pulse Resp BP Pulse Ox
98.4 F 56 18 151/80 98
01/05/25 07:30 01/05/25 07:30 01/05/25 07:30 01/05/25 07:30 01/05/25 07:50
I&O
01/04/25 01/05/25 01/06/25
06:59 06:59 06:59
Intake Total 2059 2140 / 2140 240 / 240
Output Total 2195 / 2195 990 / 990
Balance -135 / -135 1150 / 1150 240 / 240
Review of Systems
-
History Source: Patient
All other systems: Reviewed and negative
--- NOTE | 2025-01-05 12:12 | W.DS.TRANS ---
DC Summary - Instrument Repair Specialist
-
Discharge Instructions:
Discharge Diagnosis/Procedures Acute gallstone pancreatitis, laparoscopic
fenestrated cholecystectomy, ERCP with stent
placement
Diet Low Fat,Low Cholesterol
Additional Diets Smaller meals initially after surgery his
abdominal bloating and distention are common.
Avoid oily, greasy, fried foods and foods with
higher fat content.
Activity No strenuous activity
Driving Restrictions As prior to admission
Bathing Restrictions OK to Shower
Other Services VN
Wound Care Okay to shower as advised below. Drain care as
outlined below as well.
Instructions:
Stand-Alone Forms:
Changes to Home Medications: No
Discharge Medications:
DC Medications w/original date entered in [facility]
amlodipine 10 mg tablet 10 mg PO HS Blood Pressure 12/30/24
hydrochlorothiazide 25 mg tablet 25 mg PO DAILY PRN swelling 12/30/24
irbesartan 150 mg tablet 150 mg PO HS Blood Pressure 12/30/24
rosuvastatin 5 mg tablet 5 mg PO MOWEFR High Cholesterol 12/30/24
tamsulosin 0.4 mg capsule 0.4 mg PO HS Urinary Issue/BPH 12/30/24
zolpidem 5 mg tablet (Ambien) 5 mg PO HS PRN insomnia 12/30/24
amoxicillin 875 mg-potassium clavulanate 125 mg tablet 1 tab PO BID #3 tabs 01/05/25
ibuprofen 800 mg tablet 800 mg PO Q6H PRN Pain #20 tabs 01/05/25
polyethylene glycol 3350 17 gram oral powder packet 17 g PO DAILY #0 ea 01/05/25
simethicone 80 mg chewable tablet 80 mg PO QIDPRN PRN gas #0 tabs 01/05/25
Home Medication Changes
Pending Results: No
[2025-01-05 13:20] VITALS: BP 143/75
--- NOTE | 2025-01-06 11:04 | OR.RPT ---
Operative Report
Operative Report
Patient Name: Manuel Rodriguez
: 1945
Date of Operation: 01/02/2025
Preoperative Diagnosis: Gallstone pancreatitis
Postoperative Diagnosis: Gallstone pancreatitis, acute on chronic cholecystitis
Procedure(s):
Laparoscopic subtotal fenestrating cholecystectomy with Cholangiogram +22 modifier
Excision of the falciform ligament
Surgeon(s):
Dr. Tirado
Insurance Sales Associate(s):
None
Anesthesia: General
Estimated Blood Loss: 11 cc
Urine Output: None
Drains/Lines/Implants: None
Specimen / Cultures:
1. Gallbladder fluid for culture.
2. Gallbladder and contents
3. Falciform ligament
HPI/Surgical Indications:
This is 79-year-old male who presents with several days of abdominal pain. Exam, labs and imaging are consistent with gallstone mediated pancreatitis. Risks/Benefits/Alternatives were discussed at length, and the patient agreed to proceed with
surgery.
Operative Findings: At the start of the case, the falciform ligament was not tethered to the anterior abdominal wall but instead directly connected to the umbilical region preventing superior retraction of the liver, this was excised near the sulcus
and near the umbilicus and sent as specimen #3. Dense adhesions from the colon and duodenum overlying the gallbladder were identified and were taken down with a mix of sharp and blunt dissection as well as judicious use of electrocautery. The
cystic triangle was prohibitively inflamed so a top-down subtotal fenestrated laparoscopic cholecystectomy was performed. There was purulent bile in the gallbladder which was cultured. There was multiple black oxalate stones which were
individually removed until none remained. The ostium of the cystic duct was identified and free flow of bile was noted. Cholangiogram was performed which demonstrated normal biliary anatomy and no distal filling defects. Unfortunately given the
anatomy, ligation of the cystic duct was not possible so a 19 [place] round Henry drain was introduced through the right lateralmost port and secured to the skin with a 2-0 nylon suture with the tip of the drain in the infundibulum of the
gallbladder. The back wall of the gallbladder was fulgurated.
Procedure Description:
The patient was brought to the Operating Room and placed in the supine position with one arm tucked. Following uneventful induction of general endotracheal anesthesia, an orogastric tube was placed. The abdomen was prepped and draped in the usual
sterile fashion. A timeout was performed confirming the procedure, consent, and that IV antibiotics were infused and sequential compression devices were confirmed to be on. The abdomen was entered using a left subcostal Veress technique which
required a single pass followed by a 5 mm right upper quadrant Optiview trocar. Pneumoperitoneum to 15 mmHg pressure was obtained without difficulty and we confirmed that no injury had occurred during our entry. The patient was positioned in
reverse Trendelenberg and rotated with the right side up slightly. Two 5 mm trocars were then placed along the right subcostal margin, followed by a 12 mm port in the epigastrium. Upon entry, the gallbladder was not even visible and the falciform
ligament was not tethered to the anterior abdominal wall but instead directly connected to the umbilical region near our camera this was tethering the liver and preventing upward mobilization so laparoscopic bipolar device was opened to help divide
the falciform ligament which was removed. After bluntly exposed dissecting off some of the overlying soft tissues surrounding the liver, the fundus of the gallbladder was exposed and noted to be distended and inflamed. The gallbladder was emptied
using a decompressing needle through the fundus of the gallbladder with evacuation of bilious hydrops before A locking grasping forceps was placed on the fundus of the gallbladder where it was then retracted cephalad and to the right. There was
significant amount of inflammation particular around the infundibulum of the gallbladder and the duodenum and pericolonic fat was plastered over this area. We proceeded to dissect off these tissues safely as we could however there was a point where
essentially these planes were fused. Particularly the duodenum was plastered over what was likely the cystic triangle. At this point elected to do a top-down subtotal fenestrating cholecystectomy. A 4 x 4 Ray-Marjorie was placed into the surgical bed
and the gallbladder was entered. The anterior plate was removed. There was a multitude of small black oxalate gallstones. A large bore sigmoid suction device was used to suction all of the stones up. Through the open gallbladder we were able to
identify the ostium of the cystic duct and using a [place] grasper were able to remove 2 gallstones that were blocking the duct and remove them. We then had free flow of bile through the cystic duct into the field confirming that we had relieved
the obstructing stones. A cholangiocatheter was then inserted through the ostium and a cholangiogram was performed, our initial run leaked but are subsequent run demonstrated:
No filling defects in the biliary tree
No significant biliary dilation
Brisk flow of contrast into the duodenum
Normal biliary anatomy
The catheter was then removed. Unfortunately the cystic duct ostium was not in a favorable location that could allow for suture ligation of the duct without potential injury to the surrounding structures. The back wall of the gallbladder was
fulgurated and the anterior surface of the gallbladder wall as well as the 4 x 4 Ray-Marjorie were removed. The abdomen was again irrigated and excellent hemostasis was assured. A 19 [place] round Henry drain was introduced through the right lateralmost
port and placed into the remnant of the gallbladder and secured at the skin with a 2-0 nylon suture. All remaining trocars were then removed and the pneumoperitoneum was evacuated. The 12 mm trocar site was closed using 0 PDS suture. All trocar
sites were closed at the skin level using 4-0 Monocryl followed by Dermabond. Overall, the patient tolerated the procedure well and was taken to the Recovery Room postoperatively in stable condition.
I was the attending physician and performed the procedure with no assistance. I was present for all portions of the case
Edi Tirado MD
== END 2025-01-05 13:59 | disposition home health service (06) | DRG 417 ==
LOC: 2 SOUTH 22:11
PROVIDERS: Internal Medicine Gastroenterology; Nurse Practitioner Adult Health; Physician Assistant; Registered Nurse; Surgery; ADMITTING PHYSICIAN Hospitalist; ATTENDING PHYSICIAN Hospitalist; CONSULT PHYSICIAN Internal Medicine; CONSULT PHYSICIAN Surgery; EMERGENCY PHYSICIAN Student in an Organized Health Care Education/Training Program
PROC: BF131ZZ Fluoroscopy of Gallbladder and Bile Ducts using Low Osmolar Contrast (ICD-10-PCS; 2025-01-02)
PROC: 0DBW4ZZ Excision of Peritoneum, Percutaneous Endoscopic Approach (ICD-10-PCS; 2025-01-02)
PROC: 0FB44ZZ Excision of Gallbladder, Percutaneous Endoscopic Approach (ICD-10-PCS; 2025-01-02)
PROC: 0F7D8DZ Dilation of Pancreatic Duct with Intraluminal Device, Via Natural or Artificial Opening Endoscopic (ICD-10-PCS; 2025-01-03)
PROC: BF111ZZ Fluoroscopy of Biliary and Pancreatic Ducts using Low Osmolar Contrast (ICD-10-PCS; 2025-01-03)
PROC: 0F798DZ Dilation of Common Bile Duct with Intraluminal Device, Via Natural or Artificial Opening Endoscopic (ICD-10-PCS; 2025-01-03)
DX: K80.12 Calculus of gallbladder with acute and chronic cholecystitis without obstruction (principal); K85.10 Biliary acute pancreatitis without necrosis or infection; K91.89 Other postprocedural complications and disorders of digestive system; I10 Essential (primary) hypertension; E78.00 Pure hypercholesterolemia, unspecified; N40.0 Benign prostatic hyperplasia without lower urinary tract symptoms; K76.0 Fatty (change of) liver, not elsewhere classified; E87.6 Hypokalemia; Y83.8 Other surgical procedures as the cause of abnormal reaction of the patient, or of later complication, without mention of misadventure at the time of the procedure; E66.09 Other obesity due to excess calories; Z68.31 Body mass index [BMI] 31.0-31.9, adult
CPT/HCPCS: 29505; 74183; 74300; 74330; 76000; 76700; 80053; 82248; 83605; 83690; 85025; 85027; 85610; 85730; 87040; 87070; 87075; 87205; 88304; 96361; 96375; 99284; A4300; A9575; C1769; C1776; C2617; C2625

== ENCOUNTER 2025-02-16 06:03 | Day surgery (SDC) | payer OTHER, SELFPAY ==
[2025-02-16 08:33] VITALS: BMI 30.1
[2025-02-16 08:37] VITALS: BP 155/76
[2025-02-16 09:00] VITALS: BMI 30.1
[2025-02-16 10:30] VITALS: BP 125/73
[2025-02-16 10:45] VITALS: BP 142/44
[2025-02-16 11:00] VITALS: BP 149/83
== END 2025-02-16 11:20 | disposition home or self-care (01) ==
LOC: SDS 06:03
PROVIDERS: ATTENDING PHYSICIAN Internal Medicine Gastroenterology
DX: Z46.59 Encounter for fitting and adjustment of other gastrointestinal appliance and device (principal); K83.8 Other specified diseases of biliary tract; T85.590A Other mechanical complication of bile duct prosthesis, initial encounter
CPT/HCPCS: 43275; 74300; 76000; C1769